=== PATIENT | female | born 1980 | race Caucasian/White ===

== ENCOUNTER 2018-05-12 16:33 | Emergency (ER) | payer MEDICAID ==
[~2018-05-12] VITALS: Ht 167.6 cm; Wt 61.0 kg
[~2018-05-12 16:33] MED LIST: ALBU18HF2 INH; ALBU2.5V13 NEB; ALBU8.5H4 IH; ALBU8.5H8 IH; ALBU8HFA PO; ALPR-624 PO; BENZ-49 PO; BUDE10.2 INH; CLIN300C85 PO; GENT5DRO4 EACHEYE; GUAI120015 PO; METH500T PO; PRED50TA PO
[2018-05-12] MEDS ORDERED: ciprofloxacin 0.3% 2.5ml ophthalmic solution LEFTEYE ONE (17:00)
[2018-05-12 18:01] VITALS: BP 115/68
== END 2018-05-12 18:04 | disposition home or self-care (01) ==
LOC: ER 16:33
DX: H10.9 Unspecified conjunctivitis (principal); J45.909 Unspecified asthma, uncomplicated; Z87.440 Personal history of urinary (tract) infections; Z98.51 Tubal ligation status
CPT/HCPCS: 65222; 99284

== ENCOUNTER 2018-10-22 20:12 | Emergency (ER) | payer MEDICAID ==
[~2018-10-22] VITALS: Ht 172.7 cm; Wt 59.1 kg
[2018-10-22] MEDS ORDERED: albuterol 2.5 MG/3 ML nebule NEB STA (20:18)
[2018-10-22] MEDS ORDERED: LORazepam 2 mg/ml vial IV ONE (20:25)
[2018-10-22] MEDS ORDERED: albuterol 2.5 MG/3 ML nebule CONTNEB PRN (20:25)
[2018-10-22] MEDS ORDERED: magnesium 2GM in 50ml NS 50 ML IV ONE (20:25)
[2018-10-22] MEDS ORDERED: methylPREDNISolone sod succ 125mg/2ml vial IV ONE (20:25)
[2018-10-22] MEDS ORDERED: PRED20TA PO (20:56)
--- NOTE | 2018-10-22 21:28 | NUR ---
PT WAS ANXIOUS, ANXIETY RELIEVED AFTER MEDICATION, FAMILY AT BEDSIDE, PT ON CONTINUOUS NEB, CHRIS WELL,
[2018-10-22 22:30] VITALS: BP 111/56
== END 2018-10-22 22:31 | disposition home or self-care (01) ==
LOC: ER 20:12
DX: J45.901 Unspecified asthma with (acute) exacerbation (principal); Z98.51 Tubal ligation status; Z56.0 Unemployment, unspecified; Z79.899 Other long term (current) drug therapy
CPT/HCPCS: 93005; 94644; 94760; 96365; 96375; 99291; J2060; J2930; J3475; 94640

== ENCOUNTER 2019-06-30 20:33 | Inpatient (IN) | payer MEDICAID ==
[~2019-06-30] VITALS: Ht 167.6 cm; Wt 61.4 kg
[~2019-06-30 20:33] MED LIST changes: +CLIN-90 PO; -CLIN300C85 PO
[2019-06-30] MEDS ORDERED: normal saline 1000ML IV soln IVB ONE (21:20)
[2019-06-30] MEDS ORDERED: methylPREDNISolone sod succ 125mg/2ml vial IV ONE (21:20)
[2019-06-30] MEDS ORDERED: albuterol 2.5 MG/3 ML nebule CONTNEB PRN (21:20)
[2019-06-30 21:55] LABS: ALANINE AMINOTRANSFERASE 21 U/L (12-78); ALBUMIN 3.3 G/DL (3.4-5.0); ALKALINE PHOSPHATASE 58 IU/L (46-116); ANION GAP 9 (8-16); ASPARTATE AMINO TRANSFERASE 11 U/L (10-37); BASOPHILS # (AUTO) 0.1 X10'3 (0-0.2); BASOPHILS % (AUTO) 0.4 % (0-1); BILIRUBIN,TOTAL 0.2 MG/DL (0.1-1.0); BLOOD UREA NITROGEN 9 MG/DL (7-18); BUN/CREATININE RATIO 12.5 (6.6-38.0); CALCIUM 8.8 MG/DL (8.5-10.1); CHLORIDE 109 MMOL/L (99-107); CREATININE 0.72 MG/DL (0.40-0.90); EOSINOPHILS % (AUTO) 0.3 % (0-6); GLUCOSE 110 MG/DL (70-104); HEMATOCRIT 38.5 % (35.0-45.0); HEMOGLOBIN 13.1 g/dl (12.0-16.0); LYMPHOCYTES # (AUTO) 2.9 X10'3 (1.1-4.8); LYMPHOCYTES % (AUTO) 17.8 % (21-51); MEAN CORPUSCULAR HEMOGLOBIN 33.9 PG (27.0-31.0); MEAN CORPUSCULAR VOLUME 99.6 FL (78-98); MEAN PLATELET VOLUME 7.9 FL (7.4-10.4); MONOCYTES # (AUTO) 1.5 X10'3 (0-0.9); MONOCYTES % (AUTO) 9.3 % (2-12); NEUTROPHILS # (AUTO) 11.9 X10'3 (1.8-7.7); NEUTROPHILS % (AUTO) 72.2 % (42-75); PLATELET COUNT 342 X10'3 (140-440); POTASSIUM 3.6 MMOL/L (3.5-5.1); RED BLOOD COUNT 3.87 X10'6 (4.20-5.60); RED CELL DISTRIBUTION WIDTH 12.8 % (11.5-14.5); SODIUM 143 MMOL/L (135-145); TOTAL CARBON DIOXIDE 24.6 MMOL/L (24-32); TOTAL PROTEIN 6.7 G/DL (6.4-8.2); WHITE BLOOD COUNT 16.4 X10'3 (4.5-11.0); eGFR > 90 ML/MIN
--- NOTE | 2019-06-30 22:12 | NUR ---
rt at bedside for cont neb
--- NOTE | 2019-06-30 23:23 | NUR ---
PT UP TO BR TO VOID. AMBULATING 20 FEET SLOWLY TO BR W/DAUGHTER STANDING BY. PT REPORTS GETTING A LITTL WINDED, BUT REPORTS SHE IS FEELING MUCH BETTER THAN WHEN SHE FIRST CAME IN. CONT 1 HR NEB JUST FINISHED.
[2019-06-30] MEDS ORDERED: ipratropium/albuterol 3ml nebule NEB ONE (23:35)
--- NOTE | 2019-06-30 23:38 | NUR ---
Pt ambulated around ER and increasing sob with ambulation, hr increased from 107 to 115, but sats 95% while ambulating.
[2019-06-30] MEDS ORDERED: CefTRIAXone 2gm/D5W 50ml 50 ML IV ONE (23:45)
[2019-06-30] MEDS ORDERED: magnesium 2GM in 50ml NS 50 ML IV ONE (23:45)
[2019-06-30] MEDS ORDERED: LORA10TA7 PO (23:46)
[2019-06-30] MEDS ORDERED: BUDE10.2 INH (23:50)
[2019-06-30] MEDS ORDERED: MONT5TAB14 PO (23:50)
[2019-07-01] MEDS ORDERED: magnesium hydroxide 30ml (MOM) UD suspension PO PRN (02:05)
[2019-07-01] MEDS ORDERED: mag hydrox/Alum hydrox/simeth 30ml oral suspension PO PRN (02:05)
[2019-07-01] MEDS ORDERED: ondansetron/PF 4mg/2ml inj IV PRN (02:05)
[2019-07-01] MEDS ORDERED: albuterol 2.5 MG/3 ML nebule NEB PRN (02:10)
--- NOTE | 2019-07-01 02:42 | NUR ---
pt placed on hospital bed for comfort
--- NOTE | 2019-07-01 04:37 | NUR ---
PT RESTING ON LEFT SIDE. SHE IS ABLE TO SELF-POSITION. NO DISTRESS NOTED. WILL CONTINUE TO MONITOR. PT AWAITING ROOM UPSTAIRS.
[2019-07-01] MEDS ORDERED: albuterol 2.5 MG/3 ML nebule NEB SCH (08:00)
[2019-07-01] MEDS ORDERED: methylPREDNISolone sod succ 125mg/2ml vial IV SCH (08:00)
[2019-07-01] MEDS ORDERED: budesonide 0.5mg/2ml UD nebule IH SCH (08:00)
--- NOTE | 2019-07-01 08:51 | NUR ---
I have received patient report from Radha COMER
[2019-07-01] MEDS: montelukast 10mg tablet PO SCH (09:17)
[2019-07-01] MEDS: loratadine 10mg tablet PO SCH (09:17)
[2019-07-01] MEDS: acetaminophen 325mg tablet PO PRN (09:18)
[2019-07-01 09:20] VITALS: BP 126/63
[2019-07-01] MEDS ORDERED: potassium CL 10mEq/100ml bag 100 ML IV PRN (09:25)
[2019-07-01] MEDS ORDERED: magnesium Cl slow-release 64mg tablet PO PRN (09:25)
[2019-07-01] MEDS ORDERED: magnesium 4gm in 100ml NS 100 ML IV PRN (09:25)
[2019-07-01] MEDS ORDERED: potassium Cl 20 mEq SR tablet PO PRN ×2 (09:25)
[2019-07-01] MEDS: methylPREDNISolone sod succ 125mg/2ml vial IV SCH ×3 (09:30→19:50)
[2019-07-01] MEDS: levoFLOXACIN-Levaquin 750MG/D5 150 ML IV SCH (11:04)
--- NOTE | 2019-07-01 11:26 | NUR ---
Called pharmacist to ask about soulmedrol dosing okay to hold the 60mg dose and start it at 1400 since she just had a dose at 0917 this am
[2019-07-01] MEDS: normal saline 1000ml 1,000 ML IV SCH (13:27)
[2019-07-01] MEDS: ipratropium/albuterol 3ml nebule NEB SCH ×3 (15:13→22:38)
[2019-07-01 18:00] VITALS: BP 126/72
--- NOTE | 2019-07-01 18:35 | NUR ---
Patient report given to Tracie HESTER
[2019-07-01] MEDS: lactobacillus rhamnosus 10,000 MMU CELLS/CAPSULE PO SCH (19:50)
[2019-07-01] MEDS: LORazepam 1 MG tablet PO PRN (21:34)
--- NOTE | 2019-07-01 21:44 | NUR ---
Pt experiencing severe anxiety, called [facility] for med order to treat anxiety, lorazepam was given. Pt complaining of chest tightness, paged RT for a PRN breathing treatment. Wheezing heard on auscultation of all lung tidwell.
[2019-07-01 22:00] VITALS: BP 128/57
[2019-07-01] MEDS ORDERED: ipratropium/albuterol 3ml nebule NEB PRN (22:55)
[2019-07-02] MEDS: methylPREDNISolone sod succ 125mg/2ml vial IV SCH ×3 (03:15→13:47)
[2019-07-02] MEDS: ipratropium/albuterol 3ml nebule NEB SCH ×3 (03:27→11:24)
[2019-07-02 05:00] VITALS: BP 142/73
[2019-07-02] MEDS: acetaminophen 325mg tablet PO PRN ×2 (05:38→13:45)
[2019-07-02 06:10] VITALS: BP 142/73
[2019-07-02 06:11] LABS: BASOPHILS % (AUTO) 0 % (0-1); EOSINOPHILS % (AUTO) 0 % (0-6); HEMATOCRIT 38.3 % (35.0-45.0); HEMOGLOBIN 12.9 g/dl (12.0-16.0); LYMPHOCYTES # (AUTO) 0.9 X10'3 (1.1-4.8); LYMPHOCYTES % (AUTO) 4.5 % (21-51); MEAN CORPUSCULAR HEMOGLOBIN 33.6 PG (27.0-31.0); MEAN CORPUSCULAR HGB CONC 33.7 g/dL (33.0-36.5); MEAN CORPUSCULAR VOLUME 99.7 FL (78-98); MONOCYTES # (AUTO) 0.9 X10'3 (0-0.9); MONOCYTES % (AUTO) 4.2 % (2-12); NEUTROPHILS # (AUTO) 18.6 X10'3 (1.8-7.7); NEUTROPHILS % (AUTO) 91.3 % (42-75); PLATELET COUNT 341 X10'3 (140-440); RED BLOOD COUNT 3.85 X10'6 (4.20-5.60); WHITE BLOOD COUNT 20.4 X10'3 (4.5-11.0)
--- NOTE | 2019-07-02 06:14 | NUR ---
I have received patient report from Shanti COMER
[2019-07-02 07:13] LABS: ALANINE AMINOTRANSFERASE 20 U/L (12-78); ALBUMIN/GLOBULIN RATIO 0.9 (1.1-1.5); ALKALINE PHOSPHATASE 60 IU/L (46-116); ANION GAP 10 (8-16); ASPARTATE AMINO TRANSFERASE 11 U/L (10-37); BILIRUBIN,TOTAL 0.1 MG/DL (0.1-1.0); BLOOD UREA NITROGEN 9 MG/DL (7-18); BUN/CREATININE RATIO 16.7 (6.6-38.0); CALCIUM 8.5 MG/DL (8.5-10.1); CHLORIDE 110 MMOL/L (99-107); CREATININE 0.54 MG/DL (0.40-0.90); GLUCOSE 126 MG/DL (70-104); MAGNESIUM 1.9 MG/DL (1.5-2.4); POTASSIUM 3.8 MMOL/L (3.5-5.1); SODIUM 142 MMOL/L (135-145); TOTAL CARBON DIOXIDE 22.2 MMOL/L (24-32); TOTAL PROTEIN 6.4 G/DL (6.4-8.2); eGFR > 90 ML/MIN
[2019-07-02] MEDS: loratadine 10mg tablet PO SCH (08:02)
[2019-07-02] MEDS: lactobacillus rhamnosus 10,000 MMU CELLS/CAPSULE PO SCH (08:02)
[2019-07-02] MEDS: montelukast 10mg tablet PO SCH (08:02)
[2019-07-02] MEDS: levoFLOXACIN-Levaquin 750MG/D5 150 ML IV SCH (08:03)
[2019-07-02] MEDS: normal saline 1000ml 1,000 ML IV SCH (08:06)
[2019-07-02] MEDS: LORazepam 1 MG tablet PO PRN ×2 (08:13→13:45)
[2019-07-02 10:00] VITALS: BP 120/67
[2019-07-02 10:43] LABS: BASOPHILS % (AUTO) 0 % (0-1); EOSINOPHILS % (AUTO) 0 % (0-6); HEMATOCRIT 40.1 % (35.0-45.0); HEMOGLOBIN 13.3 g/dl (12.0-16.0); LYMPHOCYTES # (AUTO) 0.8 X10'3 (1.1-4.8); MEAN CORPUSCULAR HEMOGLOBIN 33.4 PG (27.0-31.0); MEAN CORPUSCULAR HGB CONC 33.2 g/dL (33.0-36.5); MEAN CORPUSCULAR VOLUME 100.6 FL (78-98); MONOCYTES # (AUTO) 0.6 X10'3 (0-0.9); MONOCYTES % (AUTO) 2.8 % (2-12); NEUTROPHILS # (AUTO) 19.6 X10'3 (1.8-7.7); NEUTROPHILS % (AUTO) 93.2 % (42-75); PLATELET COUNT 351 X10'3 (140-440); RED BLOOD COUNT 3.99 X10'6 (4.20-5.60); RED CELL DISTRIBUTION WIDTH 12.9 % (11.5-14.5); WHITE BLOOD COUNT 21.1 X10'3 (4.5-11.0)
[2019-07-02] MEDS ORDERED: ALBU8.5H8 INH (13:03)
[2019-07-02] MEDS ORDERED: PRED10TA23 PO (13:03)
[2019-07-02] MEDS ORDERED: LACT1CAP26 PO (13:03)
[2019-07-02] MEDS ORDERED: LEVO750T46 PO (13:03)
[2019-07-02] MEDS ORDERED: BUDE10.22 INH (13:03)
--- NOTE | 2019-07-02 14:45 | NUR ---
Patient discharged and all medications e-scripted to [facility] daniela. Patient taught to follow up with pcp at the beginning of the week and to get another cbc in a week per Dr. Cunha. Patient taught about all discharge medications and emergency management. Patient boyfriend came to get her and she was rolled downstairs in wheel chair.
== END 2019-07-02 14:45 | disposition home or self-care (01) | DRG 140 ==
LOC: ER 20:33 → ED HOLD 07-01 02:17 → EDBEDREQ 07-01 08:26 → ORTHO 4S 07-01 09:00
PROVIDERS: ADMIT Internal Medicine; ATTEND Family Medicine
DX: J44.1 Chronic obstructive pulmonary disease with (acute) exacerbation (principal); J45.51 Severe persistent asthma with (acute) exacerbation; D72.821 Monocytosis (symptomatic); Z98.51 Tubal ligation status; Z87.891 Personal history of nicotine dependence
CPT/HCPCS: 36415; 71045; 80053; 83605; 83735; 85025; 87040; 87081; 93005; 94640; 94760; 96365; 99285; G0378; J0696; J1956; J2930; J3475; J7030; J7626

== ENCOUNTER 2020-05-11 19:50 | Emergency (ER) | payer MEDICAID ==
[~2020-05-11] VITALS: Ht 165.1 cm; Wt 67.7 kg
[~2020-05-11 19:50] MED LIST changes: -ALBU18HF2 INH; -ALBU2.5V13 NEB; -ALBU8.5H4 IH; -ALBU8.5H8 IH; +ALBU8.5H8 INH; -ALBU8HFA PO; -ALPR-624 PO; -BENZ-49 PO; -BUDE10.2 INH; +BUDE10.22 INH; -CLIN-90 PO; -GENT5DRO4 EACHEYE; -GUAI120015 PO; +LACT1CAP26 PO; +LORA10TA7 PO; -METH500T PO; +MONT5TAB14 PO; -PRED50TA PO
[2020-05-11 20:11] VITALS: BP 158/86
== END 2020-05-11 22:00 | disposition left against medical advice (07) ==
LOC: ER 19:50
DX: J32.9 Chronic sinusitis, unspecified (principal); H53.8 Other visual disturbances; Z53.21 Procedure and treatment not carried out due to patient leaving prior to being seen by health care provider

== ENCOUNTER 2020-05-18 12:51 | Emergency (ER) | payer MEDICAID ==
[~2020-05-18] VITALS: Ht 167.6 cm; Wt 65.9 kg
[2020-05-18 14:51] VITALS: BP 125/70
== END 2020-05-18 14:53 | disposition home or self-care (01) ==
LOC: ER 12:51
DX: J32.9 Chronic sinusitis, unspecified (principal); J34.89 Other specified disorders of nose and nasal sinuses; R51 Headache; J45.909 Unspecified asthma, uncomplicated; Z98.51 Tubal ligation status; Z72.89 Other problems related to lifestyle; Z56.0 Unemployment, unspecified; Z79.899 Other long term (current) drug therapy; Z88.0 Allergy status to penicillin
CPT/HCPCS: 99282

== ENCOUNTER 2020-08-24 11:23 | Emergency (ER) | payer MEDICAID ==
[~2020-08-24] VITALS: Ht 170.2 cm; Wt 69.0 kg
[2020-08-24 11:52] VITALS: BP 122/78
[2020-08-24] MEDS ORDERED: PSEU-259 PO (14:54)
== END 2020-08-24 15:09 | disposition home or self-care (01) ==
LOC: ER 11:23
DX: R09.81 Nasal congestion (principal); R42 Dizziness and giddiness; G43.909 Migraine, unspecified, not intractable, without status migrainosus; R22.0 Localized swelling, mass and lump, head; J45.909 Unspecified asthma, uncomplicated; Z87.440 Personal history of urinary (tract) infections; Z98.51 Tubal ligation status; Z72.89 Other problems related to lifestyle; Z56.0 Unemployment, unspecified; Z88.0 Allergy status to penicillin; Z79.899 Other long term (current) drug therapy
CPT/HCPCS: 99282; 99283

== ENCOUNTER 2022-07-11 17:47 | Emergency (ER) | payer MEDICAID ==
[~2022-07-11] VITALS: Ht 170.2 cm; Wt 77.3 kg
[~2022-07-11 17:47] MED LIST changes: +ALBU8.5H17 INH; -ALBU8.5H8 INH; +PSEU-259 PO
[2022-07-11 18:24] VITALS: BP 128/87
[2022-07-11 18:53] LABS: BASOPHILS # (AUTO) 0.1 X10'3 (0-0.2); BASOPHILS % (AUTO) 1.5 % (0-1); EOSINOPHILS # (AUTO) 0.3 X10'3 (0-0.9); EOSINOPHILS % (AUTO) 3.1 % (0-6); HEMATOCRIT 39.8 % (35.0-45.0); HEMOGLOBIN 13.3 g/dl (12.0-16.0); LYMPHOCYTES # (AUTO) 2.9 X10'3 (1.1-4.8); LYMPHOCYTES % (AUTO) 34.4 % (21-51); MEAN CORPUSCULAR HEMOGLOBIN 32.6 PG (27.0-31.0); MEAN CORPUSCULAR HGB CONC 33.3 g/dL (33.0-36.5); MEAN CORPUSCULAR VOLUME 97.9 FL (78-98); MEAN PLATELET VOLUME 7.6 FL (7.4-10.4); MONOCYTES # (AUTO) 0.6 X10'3 (0-0.9); MONOCYTES % (AUTO) 7.7 % (2-12); NEUTROPHILS # (AUTO) 4.5 X10'3 (1.8-7.7); NEUTROPHILS % (AUTO) 53.3 % (42-75); PLATELET COUNT 405 X10'3 (140-440); RED BLOOD COUNT 4.07 X10'6 (4.20-5.60); RED CELL DISTRIBUTION WIDTH 12.5 % (11.5-14.5); WHITE BLOOD COUNT 8.5 X10'3 (4.5-11.0)
[2022-07-11 19:08] LABS: ALANINE AMINOTRANSFERASE 22 U/L (12-78); ALBUMIN 3.7 G/DL (3.4-5.0); ALBUMIN/GLOBULIN RATIO 1.1 (1.1-1.5); ALKALINE PHOSPHATASE 64 IU/L (46-116); ANION GAP 8 (8-16); ASPARTATE AMINO TRANSFERASE 14 U/L (10-37); BILIRUBIN,TOTAL 0.3 MG/DL (0.1-1.0); BLOOD UREA NITROGEN 10 MG/DL (7-18); BUN/CREATININE RATIO 13.7 (6.6-38.0); CALCIUM 9.2 MG/DL (8.5-10.1); CHLORIDE 105 MMOL/L (99-107); CREATININE 0.73 MG/DL (0.40-0.90); GLUCOSE 81 MG/DL (70-104); POTASSIUM 3.7 MMOL/L (3.5-5.1); SODIUM 141 MMOL/L (135-145); TOTAL CARBON DIOXIDE 28.1 MMOL/L (24-32); TOTAL PROTEIN 7.2 G/DL (6.4-8.2); eGFR 88 ML/MIN
== END 2022-07-12 07:15 | disposition left against medical advice (07) ==
LOC: ER 17:48
DX: R06.02 Shortness of breath (principal); G20 Parkinson's disease; Z53.21 Procedure and treatment not carried out due to patient leaving prior to being seen by health care provider
CPT/HCPCS: 36415; 71045; 80053; 82948; 83880; 84439; 84443; 84484; 85025; 93005

== ENCOUNTER 2022-12-03 13:30 | Emergency (ER) | payer MEDICAID ==
[~2022-12-03] VITALS: Ht 170.2 cm; Wt 77.3 kg
[2022-12-03 13:44] LABS: BASOPHILS # (AUTO) 0.1 X10'3 (0-0.2); BASOPHILS % (AUTO) 0.9 % (0-1); EOSINOPHILS # (AUTO) 0.4 X10'3 (0-0.9); EOSINOPHILS % (AUTO) 4.2 % (0-6); HEMATOCRIT 43.1 % (35.0-45.0); HEMOGLOBIN 14.2 g/dl (12.0-16.0); LYMPHOCYTES % (AUTO) 29.6 % (21-51); MEAN CORPUSCULAR HEMOGLOBIN 32.4 PG (27.0-31.0); MEAN CORPUSCULAR VOLUME 98.2 FL (78-98); MEAN PLATELET VOLUME 7.4 FL (7.4-10.4); MONOCYTES # (AUTO) 0.6 X10'3 (0-0.9); MONOCYTES % (AUTO) 6.3 % (2-12); NEUTROPHILS # (AUTO) 5.9 X10'3 (1.8-7.7); PLATELET COUNT 393 X10'3 (140-440); RED BLOOD COUNT 4.39 X10'6 (4.20-5.60); RED CELL DISTRIBUTION WIDTH 12.8 % (11.5-14.5); WHITE BLOOD COUNT 10.1 X10'3 (4.5-11.0)
[2022-12-03 14:07] LABS: ALANINE AMINOTRANSFERASE 13 U/L (12-78); ALBUMIN/GLOBULIN RATIO 1.1 (1.1-1.5); ALKALINE PHOSPHATASE 63 IU/L (46-116); ANION GAP 8 (8-16); ASPARTATE AMINO TRANSFERASE 13 U/L (10-37); BILIRUBIN,TOTAL 0.4 MG/DL (0.1-1.0); BLOOD UREA NITROGEN 15 MG/DL (7-18); BUN/CREATININE RATIO 23.1 (6.6-38.0); CALCIUM 9.2 MG/DL (8.5-10.1); CHLORIDE 105 MMOL/L (99-107); CREATININE 0.65 MG/DL (0.40-0.90); GLUCOSE 93 MG/DL (70-104); POTASSIUM 3.7 MMOL/L (3.5-5.1); SODIUM 139 MMOL/L (135-145); TOTAL CARBON DIOXIDE 26.1 MMOL/L (24-32); TOTAL PROTEIN 7.7 G/DL (6.4-8.2); eGFR > 90 ML/MIN
[2022-12-03 15:50] VITALS: BP 108/71
== END 2022-12-03 15:53 | disposition home or self-care (01) ==
LOC: ER 13:30
DX: R07.89 Other chest pain (principal); J45.909 Unspecified asthma, uncomplicated; E03.9 Hypothyroidism, unspecified; Z98.51 Tubal ligation status; Z72.89 Other problems related to lifestyle; Z56.0 Unemployment, unspecified; Z88.0 Allergy status to penicillin; Z79.899 Other long term (current) drug therapy
CPT/HCPCS: 36415; 71045; 80053; 83735; 83880; 84484; 85025; 93005; 99285

== ENCOUNTER 2022-12-25 07:56 | Emergency (ER) | payer MEDICAID ==
[~2022-12-25] VITALS: Ht 167.6 cm; Wt 81.0 kg
[2022-12-25 08:51] LABS: BASOPHILS # (AUTO) 0.1 X10'3 (0-0.2); BASOPHILS % (AUTO) 0.8 % (0-1); EOSINOPHILS # (AUTO) 0.3 X10'3 (0-0.9); EOSINOPHILS % (AUTO) 3.3 % (0-6); HEMATOCRIT 39.3 % (35.0-45.0); HEMOGLOBIN 13.6 g/dl (12.0-16.0); LYMPHOCYTES # (AUTO) 1.6 X10'3 (1.1-4.8); LYMPHOCYTES % (AUTO) 20.3 % (21-51); MEAN CORPUSCULAR HEMOGLOBIN 33.8 PG (27.0-31.0); MEAN CORPUSCULAR HGB CONC 34.5 g/dL (33.0-36.5); MEAN CORPUSCULAR VOLUME 97.9 FL (78-98); MEAN PLATELET VOLUME 7.3 FL (7.4-10.4); MONOCYTES # (AUTO) 0.6 X10'3 (0-0.9); MONOCYTES % (AUTO) 8.1 % (2-12); NEUTROPHILS # (AUTO) 5.4 X10'3 (1.8-7.7); NEUTROPHILS % (AUTO) 67.5 % (42-75); PLATELET COUNT 354 X10'3 (140-440); RED BLOOD COUNT 4.01 X10'6 (4.20-5.60); RED CELL DISTRIBUTION WIDTH 12.8 % (11.5-14.5)
[2022-12-25 09:12] LABS: ALANINE AMINOTRANSFERASE 16 U/L (12-78); ALBUMIN 3.6 G/DL (3.4-5.0); ALBUMIN/GLOBULIN RATIO 1.1 (1.1-1.5); ALKALINE PHOSPHATASE 51 IU/L (46-116); ANION GAP 8 (8-16); ASPARTATE AMINO TRANSFERASE 11 U/L (10-37); BILIRUBIN,TOTAL 0.4 MG/DL (0.1-1.0); BLOOD UREA NITROGEN 12 MG/DL (7-18); BUN/CREATININE RATIO 18.2 (10.0-20.0); CALCIUM 8.4 MG/DL (8.5-10.1); CHLORIDE 107 MMOL/L (99-107); CREATININE 0.66 MG/DL (0.40-0.90); GLUCOSE 112 MG/DL (70-104); POTASSIUM 4.2 MMOL/L (3.5-5.1); SODIUM 140 MMOL/L (135-145); TOTAL CARBON DIOXIDE 25.1 MMOL/L (24-32); eGFR > 90 ML/MIN
[2022-12-25 09:40] LABS: CLARITY,URINE SLIGHTLY CLOUDY (Clear); COLOR,URINE YELLOW (Yellow); GLUCOSE, URINE NEGATIVE (Neg); KETONES,URINE NEGATIVE (Neg); LEUKOCYTE ESTERASE ,URINE NEGATIVE (Neg); NITRITES, URINE NEGATIVE (Neg); OCCULT BLOOD,URINE NEGATIVE (Neg); PH,URINE 5.5 (4.8-8.0); PROTEIN,URINE NEGATIVE (Neg); URINE HCG NEGATIVE (NEG); UROBILINOGEN,URINE 0.2 E.U/dL (0.2-1.0)
[2022-12-25 09:49] LABS: UA COLLECTION TYPE CLN CATCH MIDSTREAM
[2022-12-25 09:50] VITALS: BP 109/75
[2022-12-25 09:52] LABS: BACTERIA,URINE 2+ /HPF (Neg); MUCUS STRANDS FEW /LPF (Neg); RBC,URINE NONE SEEN /HPF (0-2); SQUAMOUS EPITHELIAL CELL,UR MANY /LPF (FEW)
[2022-12-25 10:04] LABS: URINE AMPHETAMINE SCREEN NEGATIVE (Neg); URINE BARBITUATE SCREEN NEGATIVE (Neg); URINE BENZODIAZEPINES SCREEN NEGATIVE (Neg); URINE CANNABINOID SCREEN POSITIVE (Neg); URINE COCAINE SCREEN NEGATIVE (Neg); URINE METHADONE SCREEN NEGATIVE (Neg); URINE OPIATE SCREEN NEGATIVE (Neg); URINE PHENCYCLIDINE SCREEN NEGATIVE (Neg)
== END 2022-12-25 09:55 | disposition home or self-care (01) ==
LOC: ER 07:57
DX: R42 Dizziness and giddiness (principal); J45.909 Unspecified asthma, uncomplicated; E03.9 Hypothyroidism, unspecified; R94.6 Abnormal results of thyroid function studies; Z72.89 Other problems related to lifestyle; Z98.51 Tubal ligation status; Z56.0 Unemployment, unspecified; Z88.0 Allergy status to penicillin; Z79.899 Other long term (current) drug therapy
CPT/HCPCS: 36415; 70450; 71045; 80053; 80305; 81001; 81025; 84443; 85025; 93005; 99285

== ENCOUNTER 2022-12-30 19:02 | Emergency (ER) | payer SELFPAY ==
[~2022-12-30] VITALS: Ht 165.1 cm; Wt 84.1 kg
[2022-12-30 19:31] VITALS: BP 151/91
== END 2022-12-30 19:36 | disposition left against medical advice (07) ==
LOC: ER 19:03
DX: R42 Dizziness and giddiness (principal); Z53.21 Procedure and treatment not carried out due to patient leaving prior to being seen by health care provider
CPT/HCPCS: 99281

== ENCOUNTER 2023-06-23 13:14 | Emergency (ER) | payer MEDICAID ==
[~2023-06-23] VITALS: Ht 170.2 cm; Wt 80.8 kg
[2023-06-23 13:52] LABS: BASOPHILS # (AUTO) 0.1 X10'3 (0-0.2); BASOPHILS % (AUTO) 0.8 % (0-1); EOSINOPHILS # (AUTO) 0.5 X10'3 (0-0.9); EOSINOPHILS % (AUTO) 4.7 % (0-6); HEMATOCRIT 40.5 % (35.0-45.0); HEMOGLOBIN 13.9 g/dl (12.0-16.0); LYMPHOCYTES # (AUTO) 2.6 X10'3 (1.1-4.8); LYMPHOCYTES % (AUTO) 25.2 % (21-51); MEAN CORPUSCULAR HEMOGLOBIN 33.3 PG (27.0-31.0); MEAN CORPUSCULAR HGB CONC 34.3 g/dL (33.0-36.5); MEAN CORPUSCULAR VOLUME 97.2 FL (78-98); MEAN PLATELET VOLUME 7.6 FL (7.4-10.4); MONOCYTES # (AUTO) 0.7 X10'3 (0-0.9); MONOCYTES % (AUTO) 6.5 % (2-12); NEUTROPHILS # (AUTO) 6.5 X10'3 (1.8-7.7); NEUTROPHILS % (AUTO) 62.8 % (42-75); PLATELET COUNT 437 X10'3 (140-440); RED BLOOD COUNT 4.17 X10'6 (4.20-5.60); RED CELL DISTRIBUTION WIDTH 12.5 % (11.5-14.5); WHITE BLOOD COUNT 10.3 X10'3 (4.5-11.0)
[2023-06-23 14:04] LABS: ALANINE AMINOTRANSFERASE 22 U/L (12-78); ALBUMIN 3.7 G/DL (3.4-5.0); ALBUMIN/GLOBULIN RATIO 1.1 (1.1-1.5); ALKALINE PHOSPHATASE 58 IU/L (46-116); ANION GAP 6 (8-16); ASPARTATE AMINO TRANSFERASE 17 U/L (10-37); BILIRUBIN,TOTAL 0.5 MG/DL (0.1-1.0); BLOOD UREA NITROGEN 12 MG/DL (7-18); BUN/CREATININE RATIO 18.8 (10.0-20.0); CALCIUM 8.8 MG/DL (8.5-10.1); CHLORIDE 106 MMOL/L (99-107); CREATININE 0.64 MG/DL (0.40-0.90); GLUCOSE 100 MG/DL (70-104); POTASSIUM 3.9 MMOL/L (3.5-5.1); SODIUM 137 MMOL/L (135-145); TOTAL CARBON DIOXIDE 24.8 MMOL/L (24-32); TOTAL PROTEIN 7.2 G/DL (6.4-8.2); eCRCL 112 ML/MIN; eGFR > 90 ML/MIN
[2023-06-23 14:12] LABS: PRO BRAIN NATRIURETIC PEPTIDE 126 PG/ML (0-125)
[2023-06-23 17:50] VITALS: BP 119/83; PULSE 67; RESP 17; TEMP 97.5; O2SAT 96
[2023-06-23] MEDS ORDERED: ipratropium/albuterol 3ml nebule IH PRN (18:05)
[2023-06-23] MEDS ORDERED: AZIT-164 PO (18:37)
== END 2023-06-23 18:52 | disposition home or self-care (01) ==
LOC: ER 13:15
DX: J40 Bronchitis, not specified as acute or chronic (principal); J45.909 Unspecified asthma, uncomplicated; E03.9 Hypothyroidism, unspecified; Z72.89 Other problems related to lifestyle; Z56.0 Unemployment, unspecified; Z98.51 Tubal ligation status; Z88.0 Allergy status to penicillin; Z79.2 Long term (current) use of antibiotics; Z79.899 Other long term (current) drug therapy
CPT/HCPCS: 36415; 71045; 80053; 83880; 84484; 85025; 93005; 99285

== ENCOUNTER 2023-08-19 14:47 | Emergency (ER) | payer MEDICAID ==
[~2023-08-19] VITALS: Ht 175.3 cm; Wt 82.3 kg
[2023-08-19 15:12] VITALS: RESP 18
[2023-08-19 15:47] LABS: BASOPHILS % (AUTO) 0.3 % (0-1); EOSINOPHILS % (AUTO) 0.2 % (0-6); HEMATOCRIT 44.1 % (35.0-45.0); HEMOGLOBIN 14.6 g/dl (12.0-16.0); LYMPHOCYTES # (AUTO) 1.7 X10'3 (1.1-4.8); LYMPHOCYTES % (AUTO) 13.5 % (21-51); MEAN CORPUSCULAR HEMOGLOBIN 32.9 PG (27.0-31.0); MEAN CORPUSCULAR HGB CONC 33.2 g/dL (33.0-36.5); MEAN CORPUSCULAR VOLUME 99.3 FL (78-98); MEAN PLATELET VOLUME 7.1 FL (7.4-10.4); MONOCYTES # (AUTO) 0.5 X10'3 (0-0.9); MONOCYTES % (AUTO) 3.8 % (2-12); NEUTROPHILS # (AUTO) 10.5 X10'3 (1.8-7.7); NEUTROPHILS % (AUTO) 82.2 % (42-75); PLATELET COUNT 471 X10'3 (140-440); RED BLOOD COUNT 4.44 X10'6 (4.20-5.60); RED CELL DISTRIBUTION WIDTH 13.3 % (11.5-14.5); WHITE BLOOD COUNT 12.7 X10'3 (4.5-11.0)
[2023-08-19 16:01] LABS: ANION GAP 8 (8-16); BILIRUBIN,TOTAL 0.4 MG/DL (0.1-1.0); BLOOD UREA NITROGEN 10 MG/DL (7-18); BUN/CREATININE RATIO 11.9 (10.0-20.0); CALCIUM 8.9 MG/DL (8.5-10.1); CHLORIDE 102 MMOL/L (99-107); CREATININE 0.84 MG/DL (0.40-0.90); GLUCOSE 98 MG/DL (70-104); POTASSIUM 4.1 MMOL/L (3.5-5.1); SODIUM 138 MMOL/L (135-145); TOTAL PROTEIN 7.1 G/DL (6.4-8.2); eCRCL 92 ML/MIN; eGFR 75 ML/MIN
[2023-08-19 16:02] LABS: ALANINE AMINOTRANSFERASE 18 U/L (12-78); ALBUMIN 3.7 G/DL (3.4-5.0); ALBUMIN/GLOBULIN RATIO 1.1 (1.1-1.5); ALKALINE PHOSPHATASE 51 IU/L (46-116); ASPARTATE AMINO TRANSFERASE 8 U/L (10-37)
[2023-08-19 16:04] VITALS: BP 115/77; PULSE 70; TEMP 98.3; O2SAT 97
[2023-08-19 16:08] LABS: PRO BRAIN NATRIURETIC PEPTIDE 94 PG/ML (0-125)
== END 2023-08-19 22:57 | disposition left against medical advice (07) ==
LOC: ER 14:48
DX: R53.1 Weakness (principal); Z53.21 Procedure and treatment not carried out due to patient leaving prior to being seen by health care provider
CPT/HCPCS: 36415; 71045; 80053; 83880; 84484; 85025; 99281

== ENCOUNTER 2024-02-22 12:09 | Inpatient (IN) | payer MEDICAID ==
[~2024-02-22] VITALS: Ht 172.7 cm; Wt 81.1 kg
[2024-02-22] VITALS (12 sets, daily range): BP systolic 126; BP diastolic 76; PULSE 91–117; RESP 17–24; TEMP 96.9; O2SAT 94–98
[~2024-02-22 12:09] MED LIST changes: -MONT5TAB14 PO; +MONT5TAB80 PO
[2024-02-22] MEDS: ipratropium/albuterol 3ml nebule NEB ONE (12:32)
[2024-02-22 12:36] LABS: BASOPHILS # (AUTO) 0.1 X10'3 (0-0.2); BASOPHILS % (AUTO) 0.9 % (0-1); EOSINOPHILS # (AUTO) 0.7 X10'3 (0-0.9); HEMATOCRIT 44.5 % (35.0-45.0); HEMOGLOBIN 14.9 g/dl (12.0-16.0); LYMPHOCYTES # (AUTO) 2.3 X10'3 (1.1-4.8); LYMPHOCYTES % (AUTO) 22.7 % (21-51); MEAN CORPUSCULAR HEMOGLOBIN 32.7 PG (27.0-31.0); MEAN CORPUSCULAR HGB CONC 33.4 g/dL (33.0-36.5); MEAN CORPUSCULAR VOLUME 97.9 FL (78-98); MEAN PLATELET VOLUME 7.4 FL (7.4-10.4); MONOCYTES # (AUTO) 0.6 X10'3 (0-0.9); NEUTROPHILS # (AUTO) 6.3 X10'3 (1.8-7.7); NEUTROPHILS % (AUTO) 63.4 % (42-75); PLATELET COUNT 409 X10'3 (140-440); RED BLOOD COUNT 4.54 X10'6 (4.20-5.60); RED CELL DISTRIBUTION WIDTH 13.3 % (11.5-14.5)
[2024-02-22] MEDS ORDERED: albuterol 2.5 MG/3 ML nebule CONTNEB PRN (12:45)
[2024-02-22] MEDS: albuterol 2.5 MG/3 ML nebule CONTNEB PRN (12:57)
[2024-02-22 13:00] LABS: ALBUMIN 3.8 G/DL (3.4-5.0); ANION GAP 11 (8-16); BLOOD UREA NITROGEN 9 MG/DL (7-18); BUN/CREATININE RATIO 11.5 (10.0-20.0); CHLORIDE 106 MMOL/L (99-107); CREATININE 0.78 MG/DL (0.40-0.90); GLUCOSE 143 MG/DL (70-104); POTASSIUM 3.9 MMOL/L (3.5-5.1); PRO BRAIN NATRIURETIC PEPTIDE 62 PG/ML (0-125); SODIUM 139 MMOL/L (135-145); TOTAL CARBON DIOXIDE 22.5 MMOL/L (24-32); eCRCL 96 ML/MIN; eGFR 81 ML/MIN
[2024-02-22] MEDS: normal saline 1000ML IV soln IVB ONE (13:12)
[2024-02-22] MEDS: methylPREDNISolone sod succ 125mg/2ml vial IV ONE (13:15)
[2024-02-22] MEDS ORDERED: PRED20TA PO (13:59)
[2024-02-22] MEDS ORDERED: ALBU8HFA INH (13:59)
[2024-02-22] MEDS ORDERED: morphine 2 MG/ML inj. syringe IV PRN ×2 (15:00)
[2024-02-22] MEDS ORDERED: acetaminophen 325mg tablet PO PRN ×2 (15:00)
[2024-02-22] MEDS ORDERED: HYDROcodone/acetaminophen 5mg/325mg tablet PO PRN (15:00)
[2024-02-22] MEDS ORDERED: magnesium hydroxide 30ml (MOM) UD suspension PO PRN (15:00)
[2024-02-22] MEDS ORDERED: ondansetron/PF 4mg/2ml inj IV PRN (15:00)
[2024-02-22 16:04] LABS: MAGNESIUM 1.9 MG/DL (1.5-2.4); PHOSPHORUS 1.6 MG/DL (2.3-4.5)
[2024-02-22] MEDS: methylPREDNISolone sod succ 125mg/2ml vial IV SCH (16:40)
[2024-02-22] MEDS ORDERED: PARO20TA6 PO (19:05)
[2024-02-22] MEDS ORDERED: LEVO100T9 PO (19:05)
[2024-02-22] MEDS ORDERED: IPRA3AMP31 NEB (19:05)
[2024-02-22] MEDS: docusate sod 100mg capsule PO SCH (19:06)
[2024-02-22] MEDS: albuterol 2.5 MG/3 ML nebule NEB PRN (23:13)
[2024-02-22] MEDS: mag hydrox/Alum hydrox/simeth 30ml oral suspension PO PRN (23:40)
[2024-02-23] VITALS (14 sets, daily range): BP systolic 102–148; BP diastolic 52–70; PULSE 84–103; RESP 14–20; TEMP 96.5–98.1; O2SAT 94–98
[2024-02-23 07:10] LABS: BASOPHILS % (AUTO) 0.2 % (0-1); EOSINOPHILS % (AUTO) 0 % (0-6); HEMATOCRIT 40.3 % (35.0-45.0); HEMOGLOBIN 13.5 g/dl (12.0-16.0); LYMPHOCYTES # (AUTO) 0.9 X10'3 (1.1-4.8); LYMPHOCYTES % (AUTO) 5.5 % (21-51); MEAN CORPUSCULAR HEMOGLOBIN 32.7 PG (27.0-31.0); MEAN CORPUSCULAR HGB CONC 33.5 g/dL (33.0-36.5); MEAN CORPUSCULAR VOLUME 97.6 FL (78-98); MEAN PLATELET VOLUME 7.7 FL (7.4-10.4); MONOCYTES # (AUTO) 0.2 X10'3 (0-0.9); MONOCYTES % (AUTO) 1.5 % (2-12); NEUTROPHILS # (AUTO) 15.4 X10'3 (1.8-7.7); NEUTROPHILS % (AUTO) 92.8 % (42-75); PLATELET COUNT 391 X10'3 (140-440); RED BLOOD COUNT 4.12 X10'6 (4.20-5.60); RED CELL DISTRIBUTION WIDTH 13.4 % (11.5-14.5); WHITE BLOOD COUNT 16.6 X10'3 (4.5-11.0)
[2024-02-23 07:13] LABS: ALBUMIN 3.6 G/DL (3.4-5.0); ANION GAP 12 (8-16); BLOOD UREA NITROGEN 8 MG/DL (7-18); BUN/CREATININE RATIO 13.1 (10.0-20.0); CALCIUM 9.1 MG/DL (8.5-10.1); CHLORIDE 107 MMOL/L (99-107); CREATININE 0.61 MG/DL (0.40-0.90); GLUCOSE 151 MG/DL (70-104); POTASSIUM 4.1 MMOL/L (3.5-5.1); SODIUM 139 MMOL/L (135-145); TOTAL CARBON DIOXIDE 19.6 MMOL/L (24-32); eCRCL 122 ML/MIN; eGFR > 90 ML/MIN
[2024-02-23] MEDS: CefTRIAXone/D5W-Rocephin 1gm 50 ML IV SCH (20:14)
[2024-02-24 07:30] VITALS: PULSE 83; RESP 20; O2SAT 97
[2024-02-24 07:37] VITALS: PULSE 79; RESP 18
[2024-02-24 08:12] LABS: BASOPHILS % (AUTO) 0 % (0-1); EOSINOPHILS % (AUTO) 0 % (0-6); HEMATOCRIT 40.9 % (35.0-45.0); HEMOGLOBIN 13.5 g/dl (12.0-16.0); LYMPHOCYTES # (AUTO) 1.2 X10'3 (1.1-4.8); LYMPHOCYTES % (AUTO) 4.5 % (21-51); MEAN CORPUSCULAR HEMOGLOBIN 32.3 PG (27.0-31.0); MEAN CORPUSCULAR HGB CONC 32.9 g/dL (33.0-36.5); MEAN CORPUSCULAR VOLUME 98.1 FL (78-98); MEAN PLATELET VOLUME 8.1 FL (7.4-10.4); MONOCYTES # (AUTO) 0.9 X10'3 (0-0.9); MONOCYTES % (AUTO) 3.5 % (2-12); PLATELET COUNT 422 X10'3 (140-440); RED BLOOD COUNT 4.17 X10'6 (4.20-5.60); RED CELL DISTRIBUTION WIDTH 13.8 % (11.5-14.5)
[2024-02-24 08:13] LABS: WHITE BLOOD COUNT 26.1 X10'3 (4.5-11.0)
[2024-02-24 08:49] LABS: ALBUMIN 3.5 G/DL (3.4-5.0); ANION GAP 10 (8-16); BLOOD UREA NITROGEN 15 MG/DL (7-18); BUN/CREATININE RATIO 20.8 (10.0-20.0); CALCIUM 9.2 MG/DL (8.5-10.1); CHLORIDE 106 MMOL/L (99-107); CREATININE 0.72 MG/DL (0.40-0.90); GLUCOSE 117 MG/DL (70-104); POTASSIUM 3.6 MMOL/L (3.5-5.1); SODIUM 141 MMOL/L (135-145); TOTAL CARBON DIOXIDE 25.1 MMOL/L (24-32); eCRCL 104 ML/MIN; eGFR 89 ML/MIN
[2024-02-24 08:52] LABS: PLATELET ESTIMATE NORMAL; TOTAL CELLS COUNTED 100
[2024-02-24 10:00] VITALS: BP 107/65; PULSE 76; RESP 16; TEMP 97.9; O2SAT 95
[2024-02-24] MEDS ORDERED: PRED10TA23 PO (10:21)
[2024-02-24 11:04] VITALS: PULSE 77; RESP 18; O2SAT 97
[2024-02-24 11:12] VITALS: PULSE 81; RESP 18
== END 2024-02-24 12:50 | disposition home or self-care (01) | DRG 141 ==
LOC: ER 12:10 → ED HOLD 15:07 → ORTHO 4S 21:15
PROVIDERS: ADMIT Internal Medicine; ATTEND Internal Medicine
DX: J45.41 Moderate persistent asthma with (acute) exacerbation (principal); E03.9 Hypothyroidism, unspecified; F32.A Depression, unspecified; Z88.0 Allergy status to penicillin; Z79.899 Other long term (current) drug therapy
CPT/HCPCS: 36415; 71045; 80048; 83735; 83880; 84100; 84484; 85007; 85025; 87081; 93005; 94640; 94760; 96374; 99285; A7015; G0378; J0696; J2919; J7030

== ENCOUNTER 2024-06-11 21:42 | Emergency (ER) | payer MEDICAID ==
[~2024-06-11] VITALS: Ht 172.7 cm; Wt 84.1 kg
[~2024-06-11 21:42] MED LIST changes: +IPRA3AMP31 NEB; -LACT1CAP26 PO; +LEVO100T9 PO; -LORA10TA7 PO; +PARO20TA6 PO; -PSEU-259 PO
[2024-06-11 22:21] LABS: BASOPHILS # (AUTO) 0.1 X10'3 (0-0.2); BASOPHILS % (AUTO) 0.8 % (0-1); EOSINOPHILS # (AUTO) 0.3 X10'3 (0-0.9); EOSINOPHILS % (AUTO) 3.2 % (0-6); HEMATOCRIT 40.3 % (35.0-45.0); HEMOGLOBIN 14.2 g/dl (12.0-16.0); LYMPHOCYTES # (AUTO) 2.8 X10'3 (1.1-4.8); LYMPHOCYTES % (AUTO) 31.1 % (21-51); MEAN CORPUSCULAR HEMOGLOBIN 33.6 PG (27.0-31.0); MEAN CORPUSCULAR HGB CONC 35.2 g/dL (33.0-36.5); MEAN CORPUSCULAR VOLUME 95.3 FL (78-98); MEAN PLATELET VOLUME 7.3 FL (7.4-10.4); MONOCYTES # (AUTO) 0.7 X10'3 (0-0.9); MONOCYTES % (AUTO) 7.9 % (2-12); NEUTROPHILS # (AUTO) 5.2 X10'3 (1.8-7.7); PLATELET COUNT 415 X10'3 (140-440); RED BLOOD COUNT 4.23 X10'6 (4.20-5.60); RED CELL DISTRIBUTION WIDTH 12.1 % (11.5-14.5); WHITE BLOOD COUNT 9.1 X10'3 (4.5-11.0)
[2024-06-11 22:32] LABS: ALANINE AMINOTRANSFERASE 34 U/L (12-78); ALBUMIN 3.8 G/DL (3.4-5.0); ALBUMIN/GLOBULIN RATIO 1.1 (1.1-1.5); ALKALINE PHOSPHATASE 58 IU/L (46-116); ANION GAP 11 (8-16); ASPARTATE AMINO TRANSFERASE 16 U/L (10-37); BILIRUBIN,TOTAL 0.4 MG/DL (0.1-1.0); BLOOD UREA NITROGEN 8 MG/DL (7-18); BUN/CREATININE RATIO 10.5 (10.0-20.0); CALCIUM 9.4 MG/DL (8.5-10.1); CHLORIDE 104 MMOL/L (99-107); CREATININE 0.76 MG/DL (0.40-0.90); GLUCOSE 121 MG/DL (70-104); POTASSIUM 3.1 MMOL/L (3.5-5.1); SODIUM 140 MMOL/L (135-145); TOTAL CARBON DIOXIDE 25.4 MMOL/L (24-32); TOTAL PROTEIN 7.4 G/DL (6.4-8.2); eCRCL 97 ML/MIN; eGFR 83 ML/MIN
[2024-06-11] MEDS: predniSONE 20 mg tablet PO ONE (22:33)
[2024-06-11] MEDS: ipratropium/albuterol 3ml nebule NEB PRN (22:34)
[2024-06-11 22:36] VITALS: PULSE 112; RESP 24; O2SAT 92
[2024-06-11 22:40] LABS: PRO BRAIN NATRIURETIC PEPTIDE 32 PG/ML (0-125)
[2024-06-11 22:44] VITALS: PULSE 99; RESP 22; O2SAT 94
[2024-06-11 22:52] VITALS: PULSE 106; RESP 20; O2SAT 94
[2024-06-11] MEDS: albuterol 2.5 MG/3 ML nebule NEB ONE (22:54)
[2024-06-11 23:04] VITALS: PULSE 101; RESP 20; O2SAT 98
[2024-06-11 23:11] VITALS: BP 106/95; RESP 16; TEMP 98.6; O2SAT 100
== END 2024-06-11 23:18 | disposition home or self-care (01) ==
LOC: ER 21:43
DX: J44.1 Chronic obstructive pulmonary disease with (acute) exacerbation (principal); J45.909 Unspecified asthma, uncomplicated; E03.9 Hypothyroidism, unspecified; Z88.0 Allergy status to penicillin; Z79.899 Other long term (current) drug therapy; Z79.51 Long term (current) use of inhaled steroids; Z98.51 Tubal ligation status; Z72.89 Other problems related to lifestyle; Z56.0 Unemployment, unspecified
CPT/HCPCS: 36415; 71045; 80053; 83605; 83880; 84145; 84484; 85025; 87040; 93005; 94640; 99285; J7512; 94760

== ENCOUNTER 2024-10-03 17:56 | Emergency (ER) | payer MEDICAID ==
[~2024-10-03] VITALS: Ht 167.6 cm; Wt 80.8 kg
[2024-10-03 18:02] VITALS: TEMP 98.3
[2024-10-03] MEDS: ipratropium/albuterol 3ml nebule NEB ONE (19:42)
[2024-10-03 19:45] VITALS: PULSE 67; RESP 19; O2SAT 100
[2024-10-03 19:49] VITALS: PULSE 71; RESP 20; O2SAT 99
[2024-10-03 20:02] LABS: BASOPHILS # (AUTO) 0.1 X10'3 (0-0.2); BASOPHILS % (AUTO) 0.6 % (0-1); EOSINOPHILS # (AUTO) 0.5 X10'3 (0-0.9); EOSINOPHILS % (AUTO) 4.8 % (0-6); HEMATOCRIT 40.2 % (35.0-45.0); LYMPHOCYTES # (AUTO) 3.3 X10'3 (1.1-4.8); LYMPHOCYTES % (AUTO) 30.6 % (21-51); MEAN CORPUSCULAR HEMOGLOBIN 33.1 PG (27.0-31.0); MEAN CORPUSCULAR HGB CONC 34.9 g/dL (33.0-36.5); MEAN CORPUSCULAR VOLUME 94.8 FL (78-98); MEAN PLATELET VOLUME 7.8 FL (7.4-10.4); MONOCYTES # (AUTO) 0.7 X10'3 (0-0.9); MONOCYTES % (AUTO) 6.9 % (2-12); NEUTROPHILS # (AUTO) 6.2 X10'3 (1.8-7.7); NEUTROPHILS % (AUTO) 57.1 % (42-75); PLATELET COUNT 385 X10'3 (140-440); RED BLOOD COUNT 4.24 X10'6 (4.20-5.60); RED CELL DISTRIBUTION WIDTH 12.6 % (11.5-14.5); WHITE BLOOD COUNT 10.9 X10'3 (4.5-11.0)
[2024-10-03] MEDS: normal saline 1000ml 1,000 ML IV ONE (20:14)
[2024-10-03] MEDS: methylPREDNISolone sod succ/PF 40mg inj. IV SCH (20:14)
[2024-10-03 20:16] LABS: ALANINE AMINOTRANSFERASE 22 U/L (12-78); ALBUMIN 3.7 G/DL (3.4-5.0); ALBUMIN/GLOBULIN RATIO 1.1 (1.1-1.5); ALKALINE PHOSPHATASE 61 IU/L (46-116); ANION GAP 10 (8-16); ASPARTATE AMINO TRANSFERASE 11 U/L (10-37); BILIRUBIN,TOTAL 0.3 MG/DL (0.1-1.0); BLOOD UREA NITROGEN 15 MG/DL (7-18); BUN/CREATININE RATIO 21.4 (10.0-20.0); CHLORIDE 105 MMOL/L (99-107); GLUCOSE 91 MG/DL (70-104); POTASSIUM 3.5 MMOL/L (3.5-5.1); SODIUM 139 MMOL/L (135-145); TOTAL CARBON DIOXIDE 24.4 MMOL/L (24-32); eCRCL 98 ML/MIN; eGFR > 90 ML/MIN
[2024-10-03 20:26] LABS: PRO BRAIN NATRIURETIC PEPTIDE 30 PG/ML (0-125)
[2024-10-03] MEDS: albuterol 2.5 MG/3 ML nebule NEB ONE (21:44)
[2024-10-03 21:47] VITALS: PULSE 80; RESP 20; O2SAT 97
[2024-10-03 21:54] VITALS: PULSE 75; O2SAT 98
[2024-10-03] MEDS ORDERED: AZIT-164 PO (22:37)
[2024-10-03] MEDS ORDERED: PRED50TA PO (22:37)
[2024-10-03] MEDS: azithromycin 250mg tablet PO ONE (22:45)
[2024-10-03 22:50] VITALS: BP 123/89; PULSE 77; RESP 16; O2SAT 96
== END 2024-10-03 22:52 | disposition home or self-care (01) ==
LOC: ER 17:57
DX: J20.9 Acute bronchitis, unspecified (principal); J45.901 Unspecified asthma with (acute) exacerbation; E03.9 Hypothyroidism, unspecified; Z98.51 Tubal ligation status; Z88.0 Allergy status to penicillin; Z56.0 Unemployment, unspecified; Z79.899 Other long term (current) drug therapy; Z79.52 Long term (current) use of systemic steroids
CPT/HCPCS: 36415; 71045; 80053; 83880; 84484; 85025; 93005; 94640; 96361; 96374; 99285; J2919; J7030; 94760

== ENCOUNTER 2024-11-03 19:20 | Emergency (ER) | payer MEDICAID ==
[~2024-11-03] VITALS: Ht 172.7 cm; Wt 85.3 kg
[~2024-11-03 19:20] MED LIST changes: +PRED50TA PO
[2024-11-03 20:15] LABS: BASOPHILS # (AUTO) 0.1 X10'3 (0-0.2); BASOPHILS % (AUTO) 0.6 % (0-1); EOSINOPHILS # (AUTO) 0.3 X10'3 (0-0.9); EOSINOPHILS % (AUTO) 3.5 % (0-6); HEMATOCRIT 42.4 % (35.0-45.0); HEMOGLOBIN 14.4 g/dl (12.0-16.0); LYMPHOCYTES # (AUTO) 3.3 X10'3 (1.1-4.8); LYMPHOCYTES % (AUTO) 33.3 % (21-51); MEAN CORPUSCULAR HEMOGLOBIN 32.7 PG (27.0-31.0); MEAN CORPUSCULAR HGB CONC 33.9 g/dL (33.0-36.5); MEAN CORPUSCULAR VOLUME 96.4 FL (78-98); MEAN PLATELET VOLUME 7.5 FL (7.4-10.4); MONOCYTES # (AUTO) 0.7 X10'3 (0-0.9); MONOCYTES % (AUTO) 7.4 % (2-12); NEUTROPHILS # (AUTO) 5.4 X10'3 (1.8-7.7); NEUTROPHILS % (AUTO) 55.2 % (42-75); PLATELET COUNT 431 X10'3 (140-440); WHITE BLOOD COUNT 9.8 X10'3 (4.5-11.0)
[2024-11-03 20:31] LABS: ALANINE AMINOTRANSFERASE 18 U/L (12-78); ALBUMIN 3.7 G/DL (3.4-5.0); ALBUMIN/GLOBULIN RATIO 0.9 (1.1-1.5); ALKALINE PHOSPHATASE 57 IU/L (46-116); ANION GAP 7 (8-16); ASPARTATE AMINO TRANSFERASE 13 U/L (10-37); BILIRUBIN,TOTAL 0.3 MG/DL (0.1-1.0); BLOOD UREA NITROGEN 7 MG/DL (7-18); BUN/CREATININE RATIO 10.6 (10.0-20.0); CALCIUM 9.1 MG/DL (8.5-10.1); CHLORIDE 105 MMOL/L (99-107); CREATININE 0.66 MG/DL (0.40-0.90); GLUCOSE 96 MG/DL (70-104); POTASSIUM 3.6 MMOL/L (3.5-5.1); SODIUM 139 MMOL/L (135-145); TOTAL CARBON DIOXIDE 27.1 MMOL/L (24-32); TOTAL PROTEIN 7.7 G/DL (6.4-8.2); eCRCL 112 ML/MIN; eGFR > 90 ML/MIN
[2024-11-03 20:39] LABS: PRO BRAIN NATRIURETIC PEPTIDE 132 PG/ML (0-125)
[2024-11-03] MEDS: predniSONE 20 mg tablet PO ONE (22:53)
[2024-11-03] MEDS ORDERED: PRED20TA PO (22:55)
[2024-11-03 23:09] VITALS: BP 123/92; PULSE 67; RESP 16; TEMP 97.5; O2SAT 100
== END 2024-11-03 23:10 | disposition home or self-care (01) ==
LOC: ER 19:21
DX: J45.909 Unspecified asthma, uncomplicated (principal); E03.9 Hypothyroidism, unspecified; Z98.51 Tubal ligation status; Z88.0 Allergy status to penicillin
CPT/HCPCS: 36415; 71045; 80053; 83880; 84484; 85025; 93005; 99285; J7512

== ENCOUNTER 2024-11-22 18:18 | Emergency (ER) | payer MEDICAID ==
[~2024-11-22] VITALS: Ht 167.6 cm; Wt 81.8 kg
[2024-11-22] MEDS: dexamethasone 4mg/ml inj IM ONE (19:19)
[2024-11-22] MEDS: LORazepam 2 mg/ml vial IM ONE (19:19)
[2024-11-22] MEDS ORDERED: PRED20TA PO (20:23)
[2024-11-22 20:26] VITALS: BP 140/80; PULSE 82; RESP 16; TEMP 97.1; O2SAT 92
== END 2024-11-22 20:30 | disposition home or self-care (01) ==
LOC: ER 18:19
DX: J45.901 Unspecified asthma with (acute) exacerbation (principal); F41.9 Anxiety disorder, unspecified; E03.9 Hypothyroidism, unspecified; Z98.51 Tubal ligation status; Z88.0 Allergy status to penicillin
CPT/HCPCS: 71045; 93005; 96372; 99284; J1100; J2060; 99283

== ENCOUNTER 2024-12-11 17:42 | Emergency (ER) | payer MEDICAID ==
[~2024-12-11] VITALS: Ht 172.7 cm; Wt 38.6 kg
[2024-12-11] MEDS ORDERED: albuterol 2.5 MG/3 ML nebule CONTNEB PRN (18:05)
[2024-12-11] MEDS: methylPREDNISolone sod succ 125mg/2ml vial IV ONE (18:28)
[2024-12-11] MEDS ORDERED: METH4TAB81 PO (20:08)
[2024-12-11 20:20] VITALS: BP 112/80; PULSE 86; RESP 12; TEMP 98.4; O2SAT 96
== END 2024-12-11 20:23 | disposition home or self-care (01) ==
LOC: ER 17:43
DX: J45.909 Unspecified asthma, uncomplicated (principal); E03.9 Hypothyroidism, unspecified; Z88.0 Allergy status to penicillin; Z98.51 Tubal ligation status
CPT/HCPCS: 71046; 96374; 99283; J2919

== ENCOUNTER 2025-03-07 17:12 | Emergency (ER) | payer MEDICAID ==
[~2025-03-07] VITALS: Ht 170.2 cm; Wt 81.8 kg
[~2025-03-07 17:12] MED LIST changes: +METH4TAB81 PO
[2025-03-07 17:13] VITALS: BP 141/89
--- NOTE | 2025-03-07 17:29 | Physician Documentation ---
History of Present Illness ~ Chief Complaint: Asthma Stated Complaint: ASTHMA Time Seen by MD: 17:19 Primary Medical Doctor: [facility]- DR. ISRA DALEY Patient is seen today with complaints of shortness of breath and asthma exacerbation. Patient states he does have albuterol inhaler as well as maintenance inhalers at home. Patient states usually when this happens she gets a nebulizer treatment and steroid shot. Patient denies any chest pain or abdominal pain or nausea, vomiting, diarrhea. Patient has no other concern or complaint at this time. Denies any recent illness. Medication Reconciliation Allergies: Coded Allergies: Penicillins (Verified Allergy, Unknown, 06/23/23) Scheduled Albuterol Sulfate (Proair Hfa), 2 PUFFS INH Q4HPRN Budesonide/Formoterol Fumarate (Symbicort 80-4.5 Mcg Inhaler), 2 PUFFS INH Q12H Ipratropium/Albuterol Sulfate (Duoneb 2.5-0.5 Mg/3 Ml Soln), 1 NEB QIDWA, (Reported) Levothyroxine Sodium (Levothyroxine Sodium), 1 TAB PO DAILY, (Reported) Methylprednisolone (Medrol Dosepak), 0 PO UD Montelukast Sodium (Singulair), 1 TAB PO DAILY, (Reported) Paroxetine HCl (Paroxetine HCl), 1 TAB PO DAILY, (Reported) Prednisone (Prednisone), 1 TAB PO DAILY Past Medical History Past Medical History: Asthma, UTI, Hypothyroidism Past Surgical History: noncontributory, tubal ligation Patient History: FH: cancer of respiratory and intrathoracic organs GRANDFATHER OR GRANDMOTHER Alcohol Use: Occasionally Drug Use: none Lives with: Spouse, Family Lives In: Home Occupation: unemployed Review of Systems Constitutional: Denies: chills, fever, weakness Eyes: Denies: pain, blurred vision ENT: Denies: ear pain, nose pain, throat pain, mouth pain Respiratory: Denies: cough, shortness of breath Cardiovascular: Denies: chest pain, palpitations Gastrointestinal: Denies: abdominal pain, nausea, vomiting Genitourinary: Denies: burning, dysuria Female Genitalia: Denies: vaginal discharge, pelvic pain Neurological: Denies: headache, dizziness Musculoskeletal: Denies: pain, swelling Integumentary: Denies: rash, lesions Allergic/Immunologic: Denies: hives, itching Hematologic/Lymphatic: Denies: no symptoms reported Psychiatric: Denies: depression, anxiety Physical Exam Vital Signs: Temperature: 98.0, Heart Rate: 81, Respiratory Rate: 21, BP: 141/89, Pulse Oximetry: 97, Weight: 81.820 Oxygen Flow Rate: 0 Physical Exam General: Awake and Alert, no acute distress. HEENT: Conjunctiva pink, Sclera clear, Mucus Membranes moist. Neck: Supple without masses and tenderness. Resp: Patient on exam does have mild elevated respiratory rate, unlabored breathing, no retractions, expiratory and inspiratory wheeze throughout all lung tidwell, patient is moving air decently. Heart: Regular Rate and rhythm, normal S1 and S2 without murmur, rub or gallop. Extremities: No cyanosis,clubbing or edema. Skin: Warm and Dry. Progress Results/Orders Results/Orders Vital Signs 03/07/25 17:13 Temp 98.0 Pulse 81 Resp 21 B/P (MAP) 141/89 Pulse Ox 97 O2 Flow Rate 0 Medical Decision Making Findings Patient is seen today with complaints of shortness of breath and asthma exacerbation. Patient states he does have albuterol inhaler as well as maintenance inhalers at home. Patient states usually when this happens she gets a nebulizer treatment and steroid shot. Patient denies any chest pain or abdominal pain or nausea, vomiting, diarrhea. Patient has no other concern or complaint at this time. Denies any recent illness. Patient was given breathing treatment with DuoNeb. Patient also given Decadron 10 mg IM along with prescription for Medrol Dosepak sent to patient pharmacy. Patient will follow up with primary care in 1-3 days if no better as needed sooner. Return to ED with any worsening, concerning or changing symptoms. Departure Disposition: HOME / SELF CARE / HOMELESS Impression: Primary Impression: Acute asthma Condition: Improved Discharge Instructions: Asthma Attack Prevention, Adult Additional Instructions: Patient was given breathing treatment with DuoNeb. Patient also given Decadron 10 mg IM along with prescription for Medrol Dosepak sent to patient pharmacy. Patient will follow up with primary care in 1-3 days if no better as needed sooner. Return to ED with any worsening, concerning or changing symptoms. Referrals: NO PRIMARY CARE PROVIDER (PCP) Prescriptions Methylprednisolone (Medrol Dosepak) 4 Mg Tab.ds.pk 0 PO UD, #21 TAB 0 Refills take 6 Pills Day 1, 5 Pills Day 2, 4 Pills Day 3, 3 Pills Day 4, 2 Pills Day 5 and 1 pill Day 6 Prov: JOSE RODRIGUEZ PAC 03/07/25 Signature Scribe Signature: No scribe Attestation: No scribe JOSE RODRIGUEZ PAC Mar 07, 2025 17:29
[2025-03-07] MEDS ORDERED: METH4TAB81 PO (17:34)
[2025-03-07] MEDS: dexamethasone sod phosphate 10mg/ml inj IM STA (17:48)
[2025-03-07 17:56] VITALS: PULSE 87; RESP 20; O2SAT 96
[2025-03-07] MEDS: ipratropium/albuterol 3ml nebule NEB STA (17:56)
[2025-03-07 17:59] VITALS: TEMP 98
[2025-03-07 18:03] VITALS: PULSE 76; RESP 18; O2SAT 98
== END 2025-03-07 18:12 | disposition home or self-care (01) ==
LOC: ER 17:13
DX: J45.909 Unspecified asthma, uncomplicated (principal); E03.9 Hypothyroidism, unspecified; Z88.0 Allergy status to penicillin; Z98.51 Tubal ligation status
CPT/HCPCS: 94640; 96372; 99283; J1100; 94760

== ENCOUNTER 2025-04-24 13:53 | Inpatient (IN) | payer MEDICAID ==
[~2025-04-24] VITALS: Ht 170.2 cm; Wt 85.8 kg
[2025-04-24 14:56] VITALS: PULSE 68; RESP 20; O2SAT 97
[2025-04-24 14:56] LABS: MEAN PLATELET VOLUME 7.9 FL (7.4-10.4); RED CELL DISTRIBUTION WIDTH 13.2 % (11.5-14.5)
[2025-04-24 15:11] VITALS: PULSE 74; RESP 20; O2SAT 97
[2025-04-24 15:16] LABS: CREATININE 0.82 MG/DL (0.40-0.90); PRO BRAIN NATRIURETIC PEPTIDE 174 PG/ML (0-125); TOTAL CARBON DIOXIDE 23.3 MMOL/L (24-32); eCRCL 87 ML/MIN; eGFR 76 ML/MIN
--- NOTE | 2025-04-24 15:43 | Physician Documentation ---
History of Present Illness ~ Chief Complaint: Asthma Stated Complaint: ASTHMA Time Seen by MD: 15:22 OK to notify your PCP?: Yes Primary Medical Doctor: [facility] Source: patient (12) Exam Limitations: no limitations HPI Patient comes in for a persistent asthma attack. She has significant asthma, is followed at [facility] pulmonary, and reports she has had a hard time controlling her symptoms over the last week or so. Patient has had increased exacerbations of her asthma over the last year or two, last week required steroids given to her by the urgent Care, which she finished yesterday. She reports that they did not seem to help much, and she generally does not do well with burst steroids. She went down to [facility] a few days ago for pulmonary function tests, and was unable to complete them due to symptoms. She is using her usual medications of Ventolin, DuoNeb, Trelegy, and has recently been placed on Dupixent about one week ago; these do not seem to be helping very much. She complains of continued wheezing, shortness of breath, but denies cough or chest pain. Medication Reconciliation Allergies: Coded Allergies: Penicillins (Verified Allergy, Unknown, 06/23/23) Scheduled Fluticasone/Umeclidin/Vilanter (Trelegy Ellipta 200-62.5-25), 1 PUFFS PO DAILY, (Reported) Ipratropium/Albuterol Sulfate (Duoneb 2.5-0.5 Mg/3 Ml Soln), 1 NEB QIDWA, (Reported) Levothyroxine Sodium (Levothyroxine Sodium), 1 TAB PO DAILY, (Reported) Levothyroxine Sodium (Synthroid), 1 TAB PO DAILY, (Reported) Omeprazole (Prilosec), 1 CAP PO DAILY, (Reported) Paroxetine HCl (Paroxetine HCl), 1 TAB PO DAILY, (Reported) Scheduled PRN albuterol inhaler (Pro-Air Inhaler), 2 PUFFS INH Q4HPRN PRN for wheezing, (Reported) Discontinued Medications Budesonide/Formoterol Fumarate (Symbicort 80-4.5 Mcg Inhaler), 2 PUFFS INH Q12H Discontinued Reason: patient no longer taking Methylprednisolone (Medrol Dosepak), 0 PO UD Discontinued Reason: patient no longer taking Methylprednisolone (Medrol Dosepak), 0 PO UD Discontinued Reason: patient no longer taking Methylprednisolone (Medrol Dosepak), 0 PO UD Discontinued Reason: patient no longer taking Montelukast Sodium (Singulair), 1 TAB PO DAILY, (Reported) Discontinued Reason: patient no longer taking Prednisone (Prednisone), 1 TAB PO DAILY Discontinued Reason: patient no longer taking Past Medical History Past Medical History: Asthma, UTI, Hypothyroidism Past Surgical History: noncontributory, tubal ligation Patient History: FH: cancer of respiratory and intrathoracic organs GRANDFATHER OR GRANDMOTHER Smoking Status: Light Tobacco User (Vape) Alcohol Use: None Drug Use: marijuana Lives with: Spouse, Family Lives In: Home Occupation: unemployed Review of Systems All Other Systems at this time: Reviewed and Negative Physical Exam Vital Signs: Temperature: 98.5, Source: Oral, Heart Rate: 70, Respiratory Rate: 12, BP: 129/85, Pulse Oximetry: 99, Weight: 85.800 Oxygen Flow Rate: 0 Physical Exam General: Pt is awake, alert, oriented x4 in mild respiratory distress. She speaks in full sentences but short. Has slight pursed lip breathing. Head: Normocephalic and atraumatic. Eyes: Conjunctiva normal. ENT: Mucous membranes moist. Neck: Supple. Chest: There is mild accessory muscle use, lungs initially clear but there is bronchospasm with forced exhalation. Cardiac: Regular rate and rhythm without murmurs, gallops or rubs. Palpation of the chest wall is normal. Abd: Soft, nondistended, nontender, with normoactive bowel sounds. No guarding or rebound. Extremities: Within normal limits without cyanosis, clubbing, or edema. Skin: [place], warm and dry with no significant rash appreciated. Neuro: Cranial nerves II-XII grossly intact. The gait is normal. Progress Progress Note 1802: Paged Hospitalist 1930: Case discussed with hospitalist who agrees to evaluate patient for admission. Results/Orders Results/Orders Orders - QUINN ABURTO MD Chest,Two Views (04/24/25 15:11) Culture Blood (04/24/25 14:15) Saline Lock (04/24/25 14:15) Oxygen (04/24/25 14:15) Svn Treatment (04/24/25 ) Cont Nebulizer Treatment (04/24/25 15:43) Albuterol 2.5mg/3ml Nebule (Proventil 2. (04/24/25 15:45) Page Hospitalist (04/24/25 18:02) Fill Out Med Reconciliation (04/24/25 18:02) Completed Orders - QUINN ABURTO MD Chest,Two Views (04/24/25 15:11) Cbc/Diff (04/24/25 14:15) BMP (04/24/25 14:15) PBNP (04/24/25 14:15) Albuterol 2.5mg/3ml Nebule (Proventil 2. (04/24/25 14:15) Methylprednisolone Sod Succ (Solumedrol (04/24/25 15:45) TSH (04/24/25 14:32) Vital Signs 04/24/25 04/24/25 04/24/25 04/24/25 14:09 14:56 15:11 15:31 Temp 98.5 Pulse 75 68 74 70 Resp 22 20 20 12 B/P (MAP) 130/80 129/85 (100) Pulse Ox 98 97 97 99 O2 Delivery Room Air* Room Air* O2 Flow Rate 0 0 0 FiO2 21 21 04/24/25 04/24/25 04/24/25 04/24/25 15:35 15:59 15:59 16:30 Pulse 76 67 Resp 24 16 B/P (MAP) 115/81 (92) Pulse Ox 99 98 O2 Flow Rate 8.0 0 04/24/25 04/24/25 04/24/25 04/24/25 17:07 17:30 19:10 19:12 Pulse 69 67 65 Resp 20 14 18 16 B/P (MAP) 115/81 (92) 118/80 (93) Pulse Ox 98 97 97 O2 Flow Rate 0 0 Laboratory Tests Test 04/24/25 14:32 White Blood Count 12.3 H Red Blood Count 4.31 Hemoglobin 13.7 Hematocrit 40.9 Mean Corpuscular Volume 94.7 Mean Corpuscular Hemoglobin 31.9 H Mean Corpuscular Hemoglobin Concent 33.6 Red Cell Distribution Width 13.2 Platelet Count 496 H Mean Platelet Volume 7.9 Neutrophils (%) (Auto) 53.5 Lymphocytes (%) (Auto) 37.5 Monocytes (%) (Auto) 6.4 Eosinophils (%) (Auto) 1.5 Basophils (%) (Auto) 1.1 H Neutrophils # (Auto) 6.6 Lymphocytes # (Auto) 4.6 Monocytes # (Auto) 0.8 Eosinophils # (Auto) 0.2 Basophils # (Auto) 0.1 CBC Comment Sodium Level 139 Potassium Level 3.7 Chloride Level 106 Carbon Dioxide Level 23.3 L Anion Gap 10 Blood Urea Nitrogen 11 Creatinine 0.82 Estimated GFR/1.73 m2 76 BUN/Creatinine Ratio 13.4 Glucose Level 98 Calcium Level 8.6 Pro-B-Type Natriuretic Peptide 174 H Albumin 3.4 Procalcitonin < 0.05 Thyroid Stimulating Hormone (TSH) 2.78 Chemistry Comments Microbiology Date/Time Source Procedure Growth Status 04/24/25 14:38 Blood Arm Right Blood Culture - Preliminary NEGATIVE (LESS THAN 24 HOURS) Resulted Re-Evaluation Re-evaluation : Re-Evaluation Time: 18:02 Progress Pt has had steroids and continuous nebulized albuterol, after initial treatment in triage. Reevaluation shows that she is still significantly symptomatic, wheezy, does not feel near baseline. Will plan admission Patient was signed out to me at 6:00 p.m.. Patient was presented to the hospitalist for admission for asthma exacerbation. Dr. Hyde EKG/XRAY/CT/US/VASC/MRI Chest X-Ray : Interpreted By: radiologist Additional Comments [place] [id number] DIAGNOSTIC RADIOLOGY Patient: KAREN BELLO Medical Record: [id number] [facility] : 1980, Age: 44 Sex: Female Location: ER Patient Status: REG ER Service Date/Time: 04/24/25/ 1511 Ordering Physician: QUINN ABURTO MD Exam: CHEST,TWO VIEWS DI CHEST,TWO VIEWS CLINICAL HISTORY: SOB COMPARISON: DI CHEST,TWO VIEWS on DOS: 12/11/24 TECHNIQUE: Frontal and lateral view of the chest was obtained FINDINGS: Lines and Tubes: None Lungs: No focal consolidation. Pleura: No effusion. No pneumothorax. Cardiomediastinal contours: Unremarkable Bones: No acute osseous abnormality. IMPRESSION: 1. No acute cardiopulmonary disease. Electronically Signed by:ANGY SEPULVEDA MD Date & Time: 04/24/251538 Dictated by: ANGY SEPULVEDA MD Dictation date and time: 04/24/251538 Primary Care Provider: NO PRIMARY CARE PROVIDER cc: QUINN ABURTO MD ~ Consults/PCP Consults/PCP : Time Call Requested: 18:03 Consult Reason/Comments: Hospitalist Medical Decision Making Additional Infomation Patient presented with continuous asthma exacerbation, despite maximal use of all of her home medications, a recent visit he Alan, and a recent course of steroids prescribed by urgent care. Although the patient is not hypoxic, she is breathless and has continuing wheezing. Despite a DuoNeb treatment in the triage area, and a subsequent continuous nebulized treatment along with parenteral corticosteroids, the patient is still is not anywhere near her baseline. She will require admission for further evaluation and management. No evidence exists for sepsis or acute infectious pathology. Departure Time of Disposition: 18:03 Disposition: 09 ADMITTED INPATIENT Admitted to Inpatient Unit: yes, to hospitalist Impression: Primary Impression: Acute asthma Condition: Guarded Referrals: NO PRIMARY CARE PROVIDER (PCP) Education Educated: Patient Educated regarding: diagnosis, treatment Signature Scribe Signature: x Attestation: The note accurately reflects work and decisions made by me.Pablo Hyde MD 04/24/25 20:04 QUINN ABURTO MD Apr 24, 2025 15:43 PABLO HYDE MD Apr 24, 2025 19:41
[2025-04-24] MEDS: albuterol 2.5 MG/3 ML nebule NEB ONE (15:57)
[2025-04-24] MEDS: albuterol 2.5 MG/3 ML nebule CONTNEB PRN (15:58)
[2025-04-24 15:59] VITALS: PULSE 76; RESP 24; O2SAT 99
[2025-04-24 17:07] VITALS: PULSE 69; RESP 20; O2SAT 98
[2025-04-24] MEDS ORDERED: ALBU8HFA INH (19:24)
[2025-04-24] MEDS ORDERED: LEVO137T24 PO (19:26)
[2025-04-24] MEDS ORDERED: OMEP40CA21 PO (19:26)
[2025-04-24] MEDS ORDERED: FLUT1BLS16 PO (19:26)
[2025-04-24] MEDS ORDERED: potassium Cl 20 mEq SR tablet PO PRN ×2 (20:10)
[2025-04-24] MEDS ORDERED: ondansetron 4mg rapidly disintigrating tab PO PRN (20:10)
[2025-04-24] MEDS ORDERED: magnesium hydroxide 30ml (MOM) UD suspension PO PRN (20:10)
[2025-04-24] MEDS ORDERED: magnesium sulf-water 2g/50mL 50 ML IV PRN (20:10)
[2025-04-24] MEDS ORDERED: magnesium sulf-water 4G/100mL 100 ML IV PRN (20:10)
[2025-04-24] MEDS ORDERED: magnesium Cl slow-release 64mg tablet PO PRN (20:10)
[2025-04-24] MEDS ORDERED: ondansetron/PF 4mg/2ml inj IV PRN (20:10)
[2025-04-24] MEDS ORDERED: mag hydrox/Alum hydrox/simeth 30ml oral suspension PO PRN (20:10)
[2025-04-24] MEDS ORDERED: potassium Cl 40MEQ/1/2NS 520ml 520 ML IV PRN (20:10)
[2025-04-24] MEDS ORDERED: ipratropium/albuterol 3ml nebule NEB PRN (20:30)
--- NOTE | 2025-04-24 20:56 | HISTORY AND PHYSICAL-Residence ---
History & Physical Providers to CC Resident Creating Document: TEMO CEDILLO RES ~ History of Present Illness Primary Medical Doctor: [facility] Reason for Admit\Complaint: Asthma Excerabation History of Present Illness This is 44 year old female known case of asthma which was diagnosed 20 years ago presented to ER with worsening shortness of breath and chest tightness .She reports her shortness of breath started 2 weeks ago for which albuterol helped and her SOB improved for about half an hour only, today at home her nebulizer was not working and her SOB got worse which prompted her to come to ER, She denies any cough,hemoptysis, nausea, vomitting or chest pain with the episode, last week she went to urgent care for shortness of breath and received prednisone 40 mg for 5 days despite completing the prednisone course she does not feel any improvement. She never used oxygen at home, reports never needed, she also uses pulse oximeter at home and her oxygen saturation is always above 95 and even today her oxygen saturation was above 95 during the asthma excerabation episode. According to the patient her asthma has been getting worse since 2 year and her last episode was last year and for which she was admitted to [facility] for 3-4 days. Patient says that she has been using albuterol and DuoNeb almost during her whole life,In addition to that she started Trelegy 6 months ago and dupixent 1 week ago. Six months ago she consulted allergy Dr. Rodarte at [facility] who referred her to borough coordinator,however patient do not remember borough coordinator name and she was ordered PFT by the borough coordinator but she could not complete that test due to asthma exacerbation. She quit ciggrate smoking 15 years ago now she currently uses vape. Allergies: Coded Allergies: Penicillins (Verified Allergy, Unknown, 06/23/23) Home Medications Home Medications Active Reported Prilosec (Omeprazole) 40 Mg Capsule 1 Cap PO DAILY Synthroid (Levothyroxine Sodium) 137 Mcg Tablet 1 Tab PO DAILY Trelegy Ellipta 200-62.5-25 (Fluticasone/Umeclidin/Vilanter) 200-62.5 Blst.w.dev 1 Puffs PO DAILY Pro-Air Inhaler (Albuterol) 8.5 Gm Inhaler 2 Puffs INH Q4HPRN PRN 30 Days Levothyroxine Sodium 100 Mcg Tablet 1 Tab PO DAILY Duoneb 2.5-0.5 Mg/3 Ml Soln (Ipratropium/Albuterol Sulfate) 0.5 Mg-3 Mg (2.5 Mg Base)/3 Ml Ampul.neb 1 NEB QIDWA Paroxetine HCl 20 Mg Tablet 1 Tab PO DAILY Past Medical History Past Medical History Asthma Past Surgical History Surgical History Comment Thyroid surgery in 2020 Tubal Ligation in 2003 Family History Family History: FH: cancer of respiratory and intrathoracic organs GRANDFATHER OR GRANDMOTHER Past Social History Social History Comment Smoked Ciggrates 15 years ago,used to smoke half pack a ciggrate a day now she dont smoke quit smoking 5 years ago. Uses vape now Uses weed No alcohol No other drug use history Lives in home with her and son Smoking: Cigarettes Alcohol Use: None Drug Use: Marijuana Lives with: Spouse, Family Lives In: Home Occupation: employed ROS Constitutional: Denies: no symptoms reported, see HPI, chills, diaphoresis, fever, malaise, weakness, other Eyes: Denies: no symptoms reported, see HPI, pain, discharge, blurred vision, double vision, itching, photophobia, redness, tearing, other ENT: Denies: no symptoms reported, see HPI, ear pain, ear bleeding, ear discharge, hearing loss, ear ringing, nose pain, nose bleeding, nose congestion, nose discharge, throat pain, throat swelling, voice change, mouth pain, mouth bleeding, mouth swelling, other Respiratory: Reports: shortness of breath, SOB with exertion, SOB at rest; Denies: no symptoms reported, see HPI, cough, orthopnea, stridor, wheezing, hemoptysis, pain with breathing, other Cardiovascular: Denies: no symptoms reported, see HPI, chest pain, left arm pain, diaphoresis, lightheadedness, syncope, edema, palpitations, irregular heart rate, other Gastrointestinal: Reports: diarrhea, constipated; Denies: no symptoms reported, see HPI, abdomen distended, abdominal pain, nausea, vomiting, melena, hematemesis, hematochezia, rectal bleeding, rectal pain, dysphagia, poor appetite, poor fluid intake, other Genitourinary: Denies: no symptoms reported, see HPI, burning, discharge, dysuria, frequency, flank pain, hematuria, incontinence, pain, decreased urine output, urgency, other Female Genitalia: Denies: no reported symptoms, see HPI, vaginal discharge, vaginal pain, pelvic pain, abnormal bleeding, dyspareunia, , other Neurological: Denies: no symptoms reported, see HPI, speech problem, headache, dizziness, fainting, tingling, left sided numbness, right sided numbness, left sided weakness, right sided weakness, problems walking, unable to move lower ext, unable to move upper ext, petit mal seizures, tonic-clonic seizures, cognitive dysfunction, other Musculoskeletal: Denies: no symptoms reported, see HPI, pain, swelling, back pain, gout, joint pain, joint swelling, muscle pain, muscle swelling, muscle stiffness, neck pain, other Integumentary: Denies: no symptoms reported, see HPI, rash, itching, lesions, lumps, bruise(s), wound(s), laceration(s), dryness, change in color, other Hematologic/Lymphatic: Denies: no symptoms reported, see HPI, anemia, blood clots, easy bleeding, easy bruising, swollen glands, other Endocrine: Denies: no symptoms reported, see HPI, excessive sweating, flushing, intolerance to cold, intolerance to heat, increased hunger, increased thrist, increased urine, unexplained weight gain, unexplained weight loss, other Psychiatric: Denies: no symptoms reported, see HPI, depression, anxiety, sleeplessness, hopeless, suicidal, hallucinations, other Exam Vitals: Vital Signs Date Time Temp Pulse Resp B/P (MAP) Pulse Ox O2 Delivery O2 Flow Rate FiO2 04/24/25 19:12 65 16 118/80 (93) 97 0 04/24/25 15:11 Room Air* 21 04/24/25 14:09 98.5 General: General: Awake and Alert, no acute distress. HEENT: Conjunctiva pink, Sclera clear, Mucus Membranes moist. Neck: Supple without masses and tenderness. Resp: Unlabored. Lungs clear to auscultation bilaterally. Heart: Regular Rate and rhythm, normal S1 and S2 without murmur, rub or gallop. Abdomen: Soft and non tender no organomegaly Extremities: No cyanosis,clubbing or edema. Skin: Warm and Dry. Diagnostic Data Last Recorded Lab Results: 04/24/25 1432 04/24/25 1432 Advance Care Planning Advanced Care plannin - 30 Minutes (I spent 17 minutes in discussing various resucitative measures and patients choose to be full code.) Additional Plan Assessment This is 44 year old female known case of asthma which was diagnosed 20 years ago presented to ER with worsening shortness of breath and chest tightness .She reports her shortness of breath started 2 weeks ago for which albuterol helped and her SOB improved for about half an hour only, today at home her nebulizer was not working and her SOB got worse which prompted her to come to ER, She denies any cough,hemoptysis, nausea, vomitting or chest pain with the episode, last week she went to urgent care for shortness of breath and received prednisone 40 mg for 5 days despite completing the prednisone course she does not feel any improvement. Plan Asthma excerabation/Allergic Asthma IV Solumedrol 125 mg adminstered in ER. Patient received proventil in ER Continue IV Solumedrol 60 mg BID IV Continue Duonebs Q6HR Neb Eosinophil normal WBC 12.3 Chest x-ray no acute cardiopulmonary disease noted. COVID and Infuenza rapid test ordered Repeat CBC Monitor for episode for asthma excerabation. SMOKES VAPE/WEED Substance use navigator consulted History of Thyroidectomy/Hypothyroidism Continue levothyroxine DVT Prophylaxis: Lovenox 30 mg Code Status: Full Code I saw and discussed the pt with the resident team We will add Pulmicort Nebs to the regimen I also suggested to add PO Doxycycline 100mg BID x 7 days to the regimen Can switch back to her home trelegy as she gets better Thank you Date of Service: Apr 24, 2025 Billing Provider: CARL GOYAL MD, SANJAY, GABRIEL Apr 24, 2025 20:56 CARL GOYAL MD Apr 25, 2025 03:26
[2025-04-24 23:09] LABS: LEUKOCYTE ESTERASE ,URINE NEGATIVE (Neg); NITRITES, URINE NEGATIVE (Neg); OCCULT BLOOD,URINE SMALL (Neg)
[2025-04-24 23:14] LABS: UA COLLECTION TYPE CLN CATCH MIDSTREAM
[2025-04-24 23:17] LABS: SQUAMOUS EPITHELIAL CELL,UR FEW /LPF (FEW)
[2025-04-25] VITALS (11 sets, daily range): BP systolic 92–124; BP diastolic 48–81; PULSE 62–102; RESP 15–20; TEMP 96.9–97.7; O2SAT 93–100
[2025-04-25] MEDS: ipratropium/albuterol 3ml nebule NEB SCH ×2 (03:31→20:05)
[2025-04-25 06:35] LABS: MEAN PLATELET VOLUME 8.0 FL (7.4-10.4); RED CELL DISTRIBUTION WIDTH 13.2 % (11.5-14.5)
[2025-04-25 06:47] LABS: CREATININE 0.87 MG/DL (0.40-0.90); PHOSPHORUS 3.9 MG/DL (2.3-4.5); TOTAL CARBON DIOXIDE 26.0 MMOL/L (24-32); eCRCL 82 ML/MIN; eGFR 71 ML/MIN
[2025-04-25] MEDS: budesonide 0.5mg/2ml UD nebule IH SCH (07:45)
[2025-04-25] MEDS: K and/or MAG REPLACEMENT MC SCH (08:00)
[2025-04-25] MEDS: levoTHYROXINE 112mcg tablet PO SCH (10:42)
[2025-04-25] MEDS: levoTHYROXINE 25mcg tablet PO SCH (10:42)
[2025-04-25] MEDS: docusate sod 100mg capsule PO SCH (10:43)
[2025-04-25] MEDS: pantoprazole 40mg Tablet.DR PO SCH (10:43)
[2025-04-25] MEDS: DOXYCYCLINE 100MG CAPSULE PO SCH (10:43)
[2025-04-25] MEDS: enoxaparin 30mg/0.3ml syringe SQ SCH (10:53)
--- NOTE | 2025-04-25 16:12 | PROGRESS NOTE- Residence ---
Progress Note - Resident Providers to CC Resident Creating Document: MARK VALENCIA, RES ~ Antibiotic Timeout Antibiotic Ordered?: Yes Subjective Patient has been evaluated at the bedside. The patient reports significant improvement of shortness of breath, resolution of cough. Objective Vital Signs Date Time Temp Pulse Resp B/P (MAP) Pulse Ox O2 Delivery O2 Flow Rate FiO2 04/25/25 08:08 Room Air 04/25/25 07:57 68 20 0.0 21 04/25/25 07:46 97 04/25/25 06:00 97.7 95/56 (69) Physical exam: General: Well alert, well oriented, not confused, not agitated, not in acute distress, well cooperated during the physical. HEENT: Conjunctive are pink, sclerae clear, no icterus, pupil is equal in both sides, reactive to light, no ear discharge, no pharyngeal erythema or an edema. Neck: Supple, no JVD, no lymphadenopathy and thyromegaly. Presence of scar in the lower side of the neck from thyroid surgery. Chest: Equal air entry on both lungs, no additional sounds no rhonchi no wheezing at the moment. Cardiovascular: S1-S2 regular sinus rhythm and, regular rate, no gallops, no rubs, no murmurs Abdomen: No visible peristalsis, Bowel sounds present on auscultation, soft, nontender, no guarding, no rigidity Extremities: No obvious deformities, no pitting edema bilaterally, capillary refill intact, peripheral pulsations are intact on both sides Central Nervous System: No focal neurological deficits, no motor or sensory weakness in all 4 extremities, could move all 4 extremities, 2+ deep tendon reflexes, negative Babinski. Musculoskeletal: No joint swelling, deformities, inflammations, and no scoliosis and back tenderness Skin: Warm and dry. Result Diagram: 04/25/25 0550 04/25/25 0550 Assessment Assessment 44-year-old female patient came to the hospital with chief complaint of shortness of breaths and cough. Plan Plan Asthma exacerbation: The patient came to the hospital with chief complaint of shortness of breaths and cough. The patient states that she continues to smoke marijuana and vapes with nicotine. Follow-up COVID-19. Continue methylprednisolone 30 mg IV b.i.d. Doxycycline 100 mg b.i.d. Culture [id number] mmu b.i.d. DuoNeb q.2h PRN DuoNebs q.4h scheduled. Smoking/marijuana use: Issue and consulted. oil well services supervisor consulted. Hypothyroidism: S/p thyroidectomy in 2020: TSH 2.78, within reference range. Levothyroxine 137 mcg daily. Code status: Full code DVT prophylaxis: Enoxaparin Analgesia/sedation: None Line/tube: PIV GI prophylaxis: Protonix 40 mg p.o. daily Nutrition: Regular diet PT: No Prognosis: Guarded Disposition: We will continue medical management. Anticipated discharge tomorrow. Mark Ortiz Internal Medicine Resident PSYCHIATRIC Date of Service: Apr 25, 2025 Billing Provider: JOSE ANGEL MEEK MD Common Visit Codes: [id number] INP/OBS CARE(HIGH) MARK VALENCIA, RES Apr 25, 2025 16:12 JOSE ANGEL MEEK MD Apr 25, 2025 19:23
[2025-04-25] MEDS: ipratropium/albuterol 3ml nebule NEB PRN (17:08)
[2025-04-25] MEDS: lactobacillus rhamnosus 10,000 MMU CELLS/CAPSULE PO SCH (21:09)
[2025-04-25] MEDS: methylPREDNISolone sod succ/PF 40mg inj. IV SCH (21:09)
[2025-04-26 05:58] LABS: MEAN PLATELET VOLUME 8.0 FL (7.4-10.4); RED CELL DISTRIBUTION WIDTH 13.4 % (11.5-14.5)
[2025-04-26 06:30] VITALS: BP 101/69; PULSE 78; RESP 16; TEMP 97.8; O2SAT 96
[2025-04-26 06:40] LABS: CREATININE 0.89 MG/DL (0.40-0.90); PHOSPHORUS 4.3 MG/DL (2.3-4.5); PRO BRAIN NATRIURETIC PEPTIDE 50 PG/ML (0-125); TOTAL CARBON DIOXIDE 23.2 MMOL/L (24-32); eCRCL 80 ML/MIN; eGFR 70 ML/MIN
[2025-04-26 08:12] VITALS: PULSE 80; RESP 16; O2SAT 98
[2025-04-26 08:20] VITALS: PULSE 84; RESP 16
[2025-04-26 10:00] VITALS: BP 97/62; PULSE 92; RESP 16; TEMP 97.9; O2SAT 99
[2025-04-26] MEDS ORDERED: LEVO-65 PO (11:14)
[2025-04-26] MEDS ORDERED: PRED20TA PO (11:14)
[2025-04-26 11:24] VITALS: PULSE 88; RESP 16; O2SAT 98
[2025-04-26 11:29] VITALS: PULSE 86; RESP 18
--- NOTE | 2025-04-26 12:18 | DISCHARGE SUMMARY-Residence ---
Discharge Summary Providers to CC Resident Creating Document: DONTA GONZALES RES CC: JOSE ANGEL MEEK MD ~ Discharge Summary Admission Diagnosis: [facility] Course DATE OF ADMISSION: 04/24/2025 DATE OF DISCHARGE: 04/26/2025 Discharge Diagnosis\Comment: Acute asthma exacerbation Hypothyroidism S/p thyroidectomy in 2020 Smoking/marijuana use Operations\Procedures: None Consultants: None Complications: None Condition on DC: Stable New Medications: Levofloxacin (Levofloxacin) 500 Mg Tablet 500 MG PO DAILY for 5 Days, #5 TAB Prednisone* (Prednisone*) 20 Mg Tablet 1 TAB PO DAILY for 5 Days, #5 TAB Continued Medications: albuterol inhaler (Pro-Air Inhaler) 8.5 Gm Inhaler 2 PUFFS INH Q4HPRN PRN for wheezing for 30 Days, #18 GM Fluticasone/Umeclidin/Vilanter (Trelegy Ellipta 200-62.5-25) 200-62.5 Blst.w.dev 1 PUFFS PO DAILY Ipratropium/Albuterol Sulfate (Duoneb 2.5-0.5 Mg/3 Ml Soln) 0.5 Mg-3 Mg (2.5 Mg Base)/3 Ml Ampul.neb 1 NEB QIDWA Levothyroxine Sodium (Synthroid) 137 Mcg Tablet 1 TAB PO DAILY Omeprazole (Prilosec) 40 Mg Capsule 1 CAP PO DAILY Paroxetine HCl (Paroxetine HCl) 20 Mg Tablet 1 TAB PO DAILY Discontinued Medications: Levothyroxine Sodium (Levothyroxine Sodium) 100 Mcg Tablet 1 TAB PO DAILY Discharge Summary: HPI as per admitting physician:This is 44 year old female known case of asthma which was diagnosed 20 years ago presented to ER with worsening shortness of breath and chest tightness .She reports her shortness of breath started 2 weeks ago for which albuterol helped and her SOB improved for about half an hour only, today at home her nebulizer was not working and her SOB got worse which prompted her to come to ER, She denies any cough,hemoptysis, nausea, vomitting or chest pain with the episode, last week she went to urgent care for shortness of breath and received prednisone 40 mg for 5 days despite completing the prednisone course she does not feel any improvement. She never used oxygen at home, reports never needed, she also uses pulse oximeter at home and her oxygen saturation is always above 95 and even today her oxygen saturation was above 95 during the asthma excerabation episode. According to the patient her asthma has been getting worse since 2 year and her last episode was last year and for which she was admitted to [facility] for 3-4 days. Patient says that she has been using albuterol and DuoNeb almost during her whole life,In addition to that she started Trelegy 6 months ago and dupixent 1 week ago. Six months ago she consulted allergy Dr. Rodarte at [facility] who referred her to orchestra musician,however patient do not remember orchestra musician name and she was ordered PFT by the orchestra musician but she could not complete that test due to asthma exacerbation. Course in the hospital: 44-year-old female patient with history of asthma, hypothyroidism status post thyroidectomy, presented to the ED with worsening shortness of breath and chest tightness. Patient has known history of significant asthma follows up with [facility], patient also reports of increased exacerbations of asthma in the last one year. Patient's chest x-ray done on 04/24/2025 was normal. We treated the patient with methylprednisolone 30 mg IV b.i.d., initiated doxycycline 100 mg b.i.d., DuoNebs q.2h p.r.n. and DuoNebs q.4h scheduled. With respect to her hypothyroidism status post thyroidectomy, we continued the home medications levothyroxine 137 mcg. Patient continues to smoke marijuana and vape nicotine. Patient was extensively counseled on strict cessation from marijuana and nicotine. We continued patient's home medication paroxetine 20 mg for her depression. We are discharging the patient with levofloxacin 500 mg b.i.d. for five days and methylprednisolone 20 mg for five days. Significant imaging: Chest x-ray: 04/24/25 No significant finding Vital Signs Date Time Temp Pulse Resp B/P (MAP) Pulse Ox O2 Delivery O2 Flow Rate FiO2 04/26/25 11:29 86 18 Room Air 0.0 04/26/25 11:24 98 21 04/26/25 06:30 97.8 101/69 (80) Laboratory Tests Test 04/24/25 14:32 04/24/25 22:44 04/24/25 22:47 04/25/25 05:50 White Blood Count 12.3 X10'3 17.8 X10'3 Red Blood Count 4.31 X10'6 4.38 X10'6 Hemoglobin 13.7 g/dl 14.0 g/dl Hematocrit 40.9 % 41.3 % Mean Corpuscular Volume 94.7 FL 94.4 FL Mean Corpuscular Hemoglobin 31.9 PG 31.9 PG Mean Corpuscular Hemoglobin Concent 33.6 g/dL 33.8 g/dL Red Cell Distribution Width 13.2 % 13.2 % Platelet Count 496 X10'3 507 X10'3 Mean Platelet Volume 7.9 FL 8.0 FL Neutrophils (%) (Auto) 53.5 % 88.3 % Lymphocytes (%) (Auto) 37.5 % 8.4 % Monocytes (%) (Auto) 6.4 % 3.2 % Eosinophils (%) (Auto) 1.5 % 0 % Basophils (%) (Auto) 1.1 % 0.1 % Neutrophils # (Auto) 6.6 X10'3 15.7 X10'3 Lymphocytes # (Auto) 4.6 X10'3 1.5 X10'3 Monocytes # (Auto) 0.8 X10'3 0.6 X10'3 Eosinophils # (Auto) 0.2 X10'3 0.0 X10'3 Basophils # (Auto) 0.1 X10'3 0.0 X10'3 CBC Comment Sodium Level 139 MMOL/L 139 MMOL/L Potassium Level 3.7 MMOL/L 4.3 MMOL/L Chloride Level 106 MMOL/L 103 MMOL/L Carbon Dioxide Level 23.3 MMOL/L 26.0 MMOL/L Anion Gap 10 10 Blood Urea Nitrogen 11 MG/DL 12 MG/DL Creatinine 0.82 MG/DL 0.87 MG/DL Estimated GFR/1.73 m2 76 ML/MIN 71 ML/MIN BUN/Creatinine Ratio 13.4 13.8 Glucose Level 98 MG/DL 114 MG/DL Calcium Level 8.6 MG/DL 9.1 MG/DL Pro-B-Type Natriuretic Peptide 174 PG/ML Albumin 3.4 G/DL 3.5 G/DL Procalcitonin < 0.05 NG/ML Thyroid Stimulating Hormone (TSH) 2.78 ulU/ml Chemistry Comments Urine Specimen Description Cln catch midstream Urine Color Yellow Urine Clarity Clear Urine pH 6.0 Urine Specific [place] 1.025 Urine Protein Negative mg/dl Urine Glucose (UA) Negative mg/dl Urine Ketones Trace mg/dl Urine Occult Blood Small Urine Nitrite Negative Urine Bilirubin Negative Urine Urobilinogen 0.2 E.U/dL Urine Leukocyte Esterase Negative Urine RBC 0-2 /HPF Urine WBC None seen /HPF Urine Squamous Epithelial Cells Few /LPF Urine Bacteria Few /HPF Urine Culture Indicated Not ind Volume Urine Centrifuged 10 ml Urine Comment Troponin I High Sensitivity 4 ng/L Phosphorus Level 3.9 MG/DL Magnesium Level 2.1 MG/DL Total Bilirubin 0.4 MG/DL Aspartate Amino Transf (AST/SGOT) 8 U/L Alanine Aminotransferase (ALT/SGPT) 22 U/L Alkaline Phosphatase 63 IU/L Total Protein 7.1 G/DL Globulin 3.6 G/DL Albumin/Globulin Ratio 1.0 Test 04/26/25 05:28 White Blood Count 14.2 X10'3 Red Blood Count 4.21 X10'6 Hemoglobin 13.8 g/dl Hematocrit 40.2 % Mean Corpuscular Volume 95.5 FL Mean Corpuscular Hemoglobin 32.6 PG Mean Corpuscular Hemoglobin Concent 34.2 g/dL Red Cell Distribution Width 13.4 % Platelet Count 476 X10'3 Mean Platelet Volume 8.0 FL Neutrophils (%) (Auto) 85.4 % Lymphocytes (%) (Auto) 10.2 % Monocytes (%) (Auto) 3.6 % Eosinophils (%) (Auto) 0 % Basophils (%) (Auto) 0.8 % Neutrophils # (Auto) 12.1 X10'3 Lymphocytes # (Auto) 1.4 X10'3 Monocytes # (Auto) 0.5 X10'3 Eosinophils # (Auto) 0.0 X10'3 Basophils # (Auto) 0.1 X10'3 CBC Comment Sodium Level 139 MMOL/L Potassium Level 4.8 MMOL/L Chloride Level 105 MMOL/L Carbon Dioxide Level 23.2 MMOL/L Anion Gap 11 Blood Urea Nitrogen 14 MG/DL Creatinine 0.89 MG/DL Estimated GFR/1.73 m2 70 ML/MIN BUN/Creatinine Ratio 15.7 Glucose Level 126 MG/DL Calcium Level 9.0 MG/DL Phosphorus Level 4.3 MG/DL Magnesium Level 2.1 MG/DL Total Bilirubin 0.3 MG/DL Aspartate Amino Transf (AST/SGOT) 9 U/L Alanine Aminotransferase (ALT/SGPT) 22 U/L Alkaline Phosphatase 65 IU/L Pro-B-Type Natriuretic Peptide 50 PG/ML Total Protein 6.9 G/DL Albumin 3.4 G/DL Globulin 3.5 G/DL Albumin/Globulin Ratio 1.0 Chemistry Comments Examination General: Well alert, well oriented, HEENT: Conjunctive are pink, sclerae clear, no icterus, pupil is equal in both sides, reactive to light, no ear discharge, no pharyngeal erythema or an edema. Neck: Supple, no JVD, no lymphadenopathy and thyromegaly. Presence of scar in the lower side of the neck from thyroid surgery. Chest: Equal air entry on both lungs, no additional sounds no rhonchi no wheezing at the moment. Cardiovascular: S1-S2 regular sinus rhythm and, regular rate, no gallops, no rubs, no murmurs Abdomen: No visible peristalsis, Bowel sounds present on auscultation, soft, nontender, no guarding, no rigidity Extremities: No obvious deformities, no pitting edema bilaterally, capillary refill intact, peripheral pulsations are intact on both sides Central Nervous System: No focal neurological deficits, no motor or sensory weakness in all 4 extremities, could move all 4 extremities, 2+ deep tendon reflexes, negative Babinski. Musculoskeletal: No joint swelling, deformities, inflammations, and no scoliosis and back tenderness Skin: Warm and dry. Discharge medication: New Medications: Levofloxacin 500 Mg Tablet Prednisone* 20 Mg Tablet Continued Medications: albuterol inhaler (Pro-Air Inhaler) 8.5 Gm Inhaler Fluticasone/Umeclidin/Vilanter (Trelegy Ellipta 200-62.5-25) 200-62.5 Blst.w.dev Ipratropium/Albuterol Sulfate (Duoneb 2.5-0.5 Mg/3 Ml Soln) 0.5 Mg-3 Mg (2.5 Mg Base)/3 Ml Ampul.neb Levothyroxine Sodium (Synthroid) 137 Mcg Tablet Omeprazole (Prilosec) 40 Mg Capsule Paroxetine HCl 20 Mg Tablet Discontinued Medications: Levothyroxine Sodium 100 Mcg Tablet Discharge advice: Please get a repeat of CBC,Procalcitonin in a week Please follow-up with your primary care doctor within a week with lab results Please follow-up with your financial reporting specialist doctor Continue levofloxacin 500 mg p.o. daily for five days Continue methylprednisolone 20 mg p.o. daily for five days Strict smoking cessation advised *Problems/Diagnosis: (1) SHORTNESS OF BREATH (2) Asthma exacerbation Status: Acute Total Time Spent on D/C: Up to 30 Minutes Counseling Services Smoking & Tobacco Cessation: > 10 Minutes (Counseled the patient extensively on cessation of nicotine and marijuana) Date of Service: Apr 26, 2025 Billing Provider: JOSE ANGEL MEEK MD Common Visit Codes: 38808-[id number] DISCH DAY >30min DONTA GONZALES, RES Apr 26, 2025 12:12 JOSE ANGEL MEEK MD Apr 26, 2025 18:44
[2025-04-26] MEDS ORDERED: enoxaparin 30mg/0.3ml syringe SQ SCH (20:00)
== END 2025-04-26 13:07 | disposition home or self-care (01) | DRG 141 ==
LOC: ER 13:54 → ED HOLD 20:21 → ORTHO 4S 23:09
PROVIDERS: ADMIT Internal Medicine; ATTEND Internal Medicine
DX: J45.901 Unspecified asthma with (acute) exacerbation (principal); E03.9 Hypothyroidism, unspecified; F12.90 Cannabis use, unspecified, uncomplicated; Z87.891 Personal history of nicotine dependence; Z88.0 Allergy status to penicillin; Z79.899 Other long term (current) drug therapy
CPT/HCPCS: 36415; 71046; 80048; 80053; 81001; 83735; 83880; 84100; 84145; 84443; 84484; 85025; 87040; 87081; 94640; 94760; 96374; 99285; G0378; J1650; J2919

== ENCOUNTER 2025-07-12 12:23 | Emergency (ER) | payer MEDICAID ==
[~2025-07-12] VITALS: Ht 170.2 cm; Wt 83.7 kg
[~2025-07-12 12:23] MED LIST changes: -ALBU8.5H17 INH; +ALBU8HFA INH; -BUDE10.22 INH; +FLUT1BLS16 PO; -LEVO100T9 PO; +LEVO137T24 PO; -METH4TAB81 PO; -MONT5TAB80 PO; +OMEP40CA21 PO; -PRED50TA PO
[2025-07-12 13:39] LABS: MEAN PLATELET VOLUME 8.0 FL (7.4-10.4); RED CELL DISTRIBUTION WIDTH 12.9 % (11.5-14.5)
[2025-07-12 13:53] LABS: CREATININE 0.58 MG/DL (0.40-0.90); TOTAL CARBON DIOXIDE 26.2 MMOL/L (24-32); eCRCL 122 ML/MIN; eGFR > 90 ML/MIN
--- NOTE | 2025-07-12 15:05 | Physician Documentation ---
History of Present Illness General Chief Complaint: Multiple Medical Complaints Stated Complaint: BACK PAIN/ WEAKNESS Time Seen by MD: 14:49 Primary Medical Doctor: [facility] History of Present Illness Initial Comments 45-year-old female who presents to the emergency department with concerns of dehydration and nauseous and fogginess in the brain that began today. Reports that the symptoms dehydration has been escalating over the last 5-6 weeks. She does report some nausea and vomiting over the last several weeks that have been intermittent. She does have a history of having a thyroidectomy and does take Synthroid. She has not had her TSH checked in some time. She feels a bit nervous. Otherwise no recent illness, injury or recent travels. No recent hospitalizations. Medication Reconciliation Allergies: Coded Allergies: Penicillins (Verified Allergy, Unknown, 06/23/23) Scheduled Fluticasone/Umeclidin/Vilanter (Trelegy Ellipta 200-62.5-25), 1 PUFFS PO DAILY, (Reported) Ipratropium/Albuterol Sulfate (Duoneb 2.5-0.5 Mg/3 Ml Soln), 1 NEB QIDWA, (Reported) Levothyroxine Sodium (Synthroid), 1 TAB PO DAILY, (Reported) Omeprazole (Prilosec), 1 CAP PO DAILY, (Reported) Paroxetine HCl (Paroxetine HCl), 1 TAB PO DAILY, (Reported) Scheduled PRN ONDANSETRON ODT 4mg tablet (Ondansetron Odt), 1 TAB PO Q6H PRN PRN for nausea/vomiting albuterol inhaler (Pro-Air Inhaler), 2 PUFFS INH Q4HPRN PRN for wheezing, (Reported) Past Medical History Past Medical History: Asthma, UTI, Hypothyroidism Past Surgical History: noncontributory, tubal ligation Smoking: Cigarettes Alcohol Use: None Drug Use: marijuana Lives with: Spouse, Family Lives In: Home Occupation: employed Review of Systems All Other Systems at this time: Reviewed and Negative Constitutional: Reports: weakness; Denies: fever, chills, diaphoresis Eye: Reports: blurred vision Psych: Reports: anxiety Physical Exam Physical Exam Vital Signs: RN Vital Signs have been reviewed: Yes, Temperature: 97.9, Source: Temporal, Heart Rate: 80, Respiratory Rate: 18, BP: 153/91, Pulse Oximetry: 98, Weight: 83.700 Oxygen Flow Rate: 0 General Appearance: alert, WD/WN Head: normal inspection Face: normal inspection Pupils/EOM/Fundus: PERRLA Neck: non-tender Respiratory: no respiratory distress Chest: accessory muscle use Cardiovascular: regular rate, rhythm Neurologic: oriented x4, underground distribution engineer II-XII nml as tested Motor / Sensory: no motor deficit, no sensory deficit Neurologic No hyperreflexia Psychiatric: anxiety Skin: normal color, warm/dry Lymphatic: no adenopathy Progress Results/Orders Results/Orders Completed Orders - PAMELA BREAUX PAC Normal Saline 1000ml (0.9% Sodium Chlori (07/12/25 15:00) Ondansetron Inj. (Zofran 4mg/2ml Vial) (07/12/25 15:00) Vital Signs 07/12/25 07/12/25 07/12/25 07/12/25 12:42 14:45 15:00 17:54 Temp 97.9 97.9 97.9 Pulse 80 79 87 Resp 18 18 18 18 B/P (MAP) 153/91 140/98 (112) 136/98 Pulse Ox 98 99 99 O2 Flow Rate 0 0 Laboratory Tests Test 07/12/25 13:25 07/12/25 15:31 White Blood Count 9.0 Red Blood Count 4.30 Hemoglobin 13.5 Hematocrit 40.0 Mean Corpuscular Volume 93.0 Mean Corpuscular Hemoglobin 31.3 H Mean Corpuscular Hemoglobin Concent 33.7 Red Cell Distribution Width 12.9 Platelet Count 435 Mean Platelet Volume 8.0 Neutrophils (%) (Auto) 61.3 Lymphocytes (%) (Auto) 23.1 Monocytes (%) (Auto) 6.2 Eosinophils (%) (Auto) 8.0 H Basophils (%) (Auto) 1.4 H Neutrophils # (Auto) 5.5 Lymphocytes # (Auto) 2.1 Monocytes # (Auto) 0.6 Eosinophils # (Auto) 0.7 Basophils # (Auto) 0.1 CBC Comment Sodium Level 138 Potassium Level 4.1 Chloride Level 106 Carbon Dioxide Level 26.2 Anion Gap 6 L Blood Urea Nitrogen 8 Creatinine 0.58 Estimated GFR/1.73 m2 > 90 BUN/Creatinine Ratio 13.8 Glucose Level 92 Calcium Level 8.6 Total Bilirubin 0.4 Aspartate Amino Transf (AST/SGOT) 21 Alanine Aminotransferase (ALT/SGPT) 29 Alkaline Phosphatase 65 Total Protein 7.4 Albumin 3.7 Globulin 3.7 Albumin/Globulin Ratio 1.0 L Lipase 26 Thyroid Stimulating Hormone (TSH) 2.48 Chemistry Comments Urine Specimen Description Cln catch midstream Urine Color Yellow Urine Clarity Clear Urine pH 6.0 Urine Specific [place] >=1.030 Urine Protein Negative Urine Glucose (UA) Negative Urine Ketones 15 H Urine Occult Blood Negative Urine Nitrite Negative Urine Bilirubin Negative Urine Urobilinogen 0.2 Urine Leukocyte Esterase Negative Urine Culture Indicated Not ind Volume Urine Centrifuged 10 ml Urine HCG, Qualitative Negative Urine Comment Medical Decision Making Additional information obtaine: N/A Findings 45-year-old female with a known history thyroidectomy taking Synthroid with symptoms and dehydration that may likely be secondary to subtherapeutic or supratherapeutic TSH. Screening labs obtained and no evidence of LIDIA yet pending TSH evaluation. We will provide IV hydration and Zofran for comfort and support. Re-evaluation pending. No clear indication for a CT imaging at this point. Labs reassuring and no obvious source of infectious process. No evidence of hyponatremia. After receiving IV hydration and Zofran patient ambulatory feeling wonderful. Safely discharged in the emergency department to continue with all medications as directed by her primary care physician. Reassuring that her TSH is in therapeutic range. Differential Diagnosis Differentials include but not limited to supra therapeutic TSH, sub therapeutic TSH, dehydration, electrolyte derangement, general weakness, unlikely LIDIA. Departure Disposition: HOME / SELF CARE / HOMELESS Impression: Primary Impression: General weakness Additional Impression: Dehydration Condition: Improved Additional Instructions: Please continue to oral hydrate take Zofran as needed and make follow up appointment with the primary care physician. All labs obtained today are reassuring. Return to the emergency department if necessary. Thank you for visiting [facility]. Referrals: NO PRIMARY CARE PROVIDER (PCP) Prescriptions ONDANSETRON ODT 4mg tablet (ONDANSETRON ODT) 4 Mg Tab.rapdis 1 TAB PO Q6H PRN PRN for nausea/vomiting for 4 Days, #16 TAB 0 Refills Prov: PAMELA BREAUX PAC 07/12/25 Education Educated: Patient Educated regarding: diagnosis, treatment, prognosis, need for follow up Signature Scribe Signature: . Attestation: PAMELA GOMEZ PAC Jul 12, 2025 15:05
[2025-07-12] MEDS: normal saline 1000ml 1,000 ML IV ONE (15:40)
[2025-07-12] MEDS: ondansetron/PF 4mg/2ml inj IV ONE (15:41)
[2025-07-12 15:59] LABS: LEUKOCYTE ESTERASE ,URINE NEGATIVE (Neg); NITRITES, URINE NEGATIVE (Neg); OCCULT BLOOD,URINE NEGATIVE (Neg)
[2025-07-12 16:08] LABS: UA COLLECTION TYPE CLN CATCH MIDSTREAM
[2025-07-12 16:13] LABS: URINE HCG NEGATIVE (NEG)
[2025-07-12] MEDS ORDERED: ONDA-243 PO (16:58)
[2025-07-12 17:54] VITALS: BP 136/98; PULSE 87; RESP 18; TEMP 97.9; O2SAT 99
== END 2025-07-12 17:56 | disposition home or self-care (01) ==
LOC: ER 12:24
DX: R53.1 Weakness (principal); E86.0 Dehydration; J45.909 Unspecified asthma, uncomplicated; F12.90 Cannabis use, unspecified, uncomplicated; F17.210 Nicotine dependence, cigarettes, uncomplicated; E03.9 Hypothyroidism, unspecified; Z98.51 Tubal ligation status; Z87.440 Personal history of urinary (tract) infections; Z88.0 Allergy status to penicillin; Z79.899 Other long term (current) drug therapy
CPT/HCPCS: 36415; 80053; 81003; 81025; 83690; 84443; 85025; 96361; 96374; 99283; J2405; J7030

== ENCOUNTER 2025-07-28 00:26 | Emergency (ER) | payer MEDICAID ==
[~2025-07-28] VITALS: Ht 170.2 cm; Wt 73.6 kg
[~2025-07-28 00:26] MED LIST changes: +ONDA-243 PO
[2025-07-28 01:25] VITALS: BP 126/101; PULSE 91; RESP 16; TEMP 97.1; O2SAT 97
[2025-07-28] MEDS: proparacaine 0.5% ophthalmic drops 15ml EACHEYE ONE (01:25)
--- NOTE | 2025-07-28 01:27 | Physician Documentation ---
History of Present Illness ~ Chief Complaint: Eye Pain Stated Complaint: EYE BURNING Time Seen by MD: 01:24 Primary Medical Doctor: [facility] Mode of Arrival: POV HPI Patient presents to the emergency room with left eye pain. She believes she may have been scratched in the eye when she was sleeping by her dog. She woke up in irritation has increased. Took ibuprofen and Tylenol without relief. Medication Reconciliation Allergies: Coded Allergies: Penicillins (Verified Allergy, Unknown, 07/28/25) Scheduled Fluticasone/Umeclidin/Vilanter (Trelegy Ellipta 200-62.5-25), 1 PUFFS PO DAILY, (Reported) Ipratropium/Albuterol Sulfate (Duoneb 2.5-0.5 Mg/3 Ml Soln), 1 NEB QIDWA, (Reported) Levothyroxine Sodium (Synthroid), 1 TAB PO DAILY, (Reported) Omeprazole (Prilosec), 1 CAP PO DAILY, (Reported) Paroxetine HCl (Paroxetine HCl), 1 TAB PO DAILY, (Reported) Scheduled PRN ONDANSETRON ODT 4mg tablet (Ondansetron Odt), 1 TAB PO Q6H PRN PRN for nausea/vomiting albuterol inhaler (Pro-Air Inhaler), 2 PUFFS INH Q4HPRN PRN for wheezing, (Reported) Past Medical History Past Medical History: Asthma, UTI, Hypothyroidism Past Surgical History: noncontributory, tubal ligation Patient History: FH: cancer of respiratory and intrathoracic organs GRANDFATHER OR GRANDMOTHER Alcohol Use: None Drug Use: marijuana Lives with: Spouse, Family Lives In: Home Occupation: employed Review of Systems ROS All review of systems negative except as per HPI Physical Exam Vital Signs: Temperature: 97.1, Source: Temporal, Heart Rate: 90, Respiratory Rate: 15, BP: 159/106, Pulse Oximetry: 98, Weight: 73.600 Physical Exam General: Patient is awake, alert, oriented x4 in no acute distress Head: Normocephalic and atraumatic. Eyes: Left eye normal. Right eye with injected sclera. Wood's lamp shows large corneal abrasion on inferior half of the iris. Pupils PERRLA ENT: Mucous membranes moist. Neck: Supple, trachea is midline. Chest: Clear to auscultation bilaterally without rales, rhonchi, or wheezes. There is no accessory muscle use or retractions. Cardiac: RRR without murmurs, gallops, or rubs. Progress Results/Orders Results/Orders Completed Orders - CORW WORTHINGTON MD Proparacaine Ophth Solution (Alcaine Oph (07/28/25 01:25) Vital Signs 07/28/25 07/28/25 07/28/25 00:36 01:08 01:25 Temp 97.1 97.1 Pulse 90 91 Resp 15 16 B/P (MAP) 159/106 126/101 (109) Pulse Ox 98 97 Medical Decision Making Additional information obtaine: N/A Findings Patient presents to the emergency room for evaluation of right eye pain. Differentials include but are not limited to corneal abrasion, acute angle glaucoma, allergic contact dermatitis. Exam consistent with corneal abrasion and we will treat her as such. Ear Diff. Dx: Considerations: Include: Abrasion, Cerumen impaction, Foreign body, Otitis externa, Barotrauma, Otitis media, Perforation, Referred pain- dental, Referred pain-pharyngitis, Referred pain-sinusitis, Referred pain-TMJ syn., Tympanic Membrane Injury, Other Eye Diff. Dx: Considerations: Include: Chalazoin, Conjuctivits-allergic, Conjuctivitis-bacterial, Conjuctivits-chlamydial, Conjuctivitis-viral, Corneal abrasion, Corneal laceration, Corneal ulceration, Foreign body-conjuctiva, Foreign body-corneal, Foreign body-intraocular, Foreign body-lid, Glaucoma, Globe rupture, Hordeolum, Iritis, Orbital cellulitis, Periobital cellulitis, Retinal artery occulsion, Retinal vein occlusion, Rust ring, Subconjunctival hem, Ultraviolet keratitis, Uveitis, Vitreous hemorrhage, Other Nose Diff. Dx: Considerations: Include: Abrasion, Anterior nasal bleed, Avulsion, Contusion, Coagulopathy, Fracture-nasal bone, Fracture-septum, Hypertension, Laceration, Other, Posterior nasal bleed, Retained foreign body, Septal hematoma Tooth Diff. Dx: Considerations: Include: Alveolar fracture, Aveolar osteitis, ANUG, Facial cellulitis, Periapical abscess, Periodontal abscess, Post- extraction bleeding, Pulpitis, Trigeminal neuralgia, Tooth-avulsion, Tooth-eruption, Tooth-fracture, Tooth-subluxation, Other Throat Diff Dx: Considerations: Include: AIDS, Epiglottitis, Esophageal candidiasis, Hand foot mouth disease, Herpangina, Herpetic stomatitis, Herpes simplex, Infection mononucleosis, Immunodeficiency, Ishan's angina, Peritonsillar abscess, Peritonsillar cellulitis, Pharyngitis-diphtheria, Pharyngitis-strepococcal, Pharyngitis-viral, Thrush, URI, Other Departure Disposition: HOME / SELF CARE / HOMELESS Impression: Primary Impression: Corneal abrasion Condition: Stable Discharge Instructions: Corneal Abrasion Referrals: NO PRIMARY CARE PROVIDER (PCP) Prescriptions Ciprofloxacin Hcl Ophth* (Ciloxan 0.35 Ophth Drops*) 2.5 Ml Bottle 1-2 DROP BREANN Q4HWA, #1 BOTTLE Prov: CROW WORTHINGTON MD 07/28/25 Signature Scribe Signature: No scribe Attestation: The note accurately reflects work and decisions made by me.Crow Worthington MD 07/28/25 02:21 CROW WORTHINGTON MD Jul 28, 2025 01:27
[2025-07-28] MEDS ORDERED: CIPR2.5D21 RIGHTEYE (02:20)
[2025-07-28] MEDS: ciprofloxacin 0.3% 2.5ml ophthalmic solution RIGHTEYE ONE (02:33)
== END 2025-07-28 02:35 | disposition home or self-care (01) ==
LOC: ER 00:26
DX: S05.02XA Injury of conjunctiva and corneal abrasion without foreign body, left eye, initial encounter (principal); E03.9 Hypothyroidism, unspecified; J45.909 Unspecified asthma, uncomplicated; F12.90 Cannabis use, unspecified, uncomplicated; Z88.0 Allergy status to penicillin; Z98.51 Tubal ligation status; X58.XXXA Exposure to other specified factors, initial encounter; Y93.89 Activity, other specified; Y92.89 Other specified places as the place of occurrence of the external cause; Y99.8 Other external cause status
CPT/HCPCS: 99283